=== PATIENT | female | born 2000 | race African-American/Black ===

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

== ENCOUNTER 2018-02-09 21:09 | Observation (INO) | payer MEDICAID ==
[2018-02-09] MEDS ORDERED: IV RINGERS,LACTATED 1000ML 1,000 ML IV (21:15)
[2018-02-09 21:31] LABS: BILIRUBIN,URINE NEGATIVE (NEG); CLARITY,URINE CLOUDY; COLOR,URINE AMBER; GLUCOSE,URINE NEGATIVE (NEG); NITRITE,URINE NEGATIVE (NEG); PH,URINE 6.5; PROTEIN,URINE NEGATIVE (NEG-TRACE)
[2018-02-09 21:35] LABS: BACTERIA,URINE MANY /HPF (0-FEW); RBC,URINE 0 /HPF (0-2)
[2018-02-09 21:36] LABS: SQUAMOUS EPITHELIAL CELL,UR MOD /LPF
[2018-02-09 21:45] LABS: BARBITURATES NEG (NEG); BENZODIAZEPINES NEG (NEG); CANNABINOIDS POS (NEG); COCAINE NEG (NEG); METHADONE NEG (NEG); OPIATES NEG (NEG); PHENCYCLIDINE NEG (NEG)
[2018-02-09 21:53] LABS: AMPHETAMINE/METHAMPHETAMINE NEG (NEG); ETHANOL, URINE NEG (NEG)
== END 2018-02-09 22:26 | disposition home or self-care (01) ==
LOC: 3 SO LND 21:09
DX: O26.892 Other specified pregnancy related conditions, second trimester (principal); R10.2 Pelvic and perineal pain; Z3A.25 25 weeks gestation of pregnancy
CPT/HCPCS: 80307; 81001; 87086; G0378; G0379

== ENCOUNTER 2018-09-21 00:50 | Emergency (ER) | payer SELFPAY ==
[~2018-09-21] VITALS: Ht 154.9 cm; Wt 57.6 kg
[~2018-09-21 00:50] MED LIST changes: +ONDA4TAB10 SL; +PNV1TABL25 PO
[2018-09-21 00:58] VITALS: BP 133/92
[2018-09-21 01:58] LABS: BILIRUBIN,URINE NEGATIVE (NEG); CLARITY,URINE CLEAR; COLOR,URINE YELLOW; NITRITE,URINE NEGATIVE (NEG); PH,URINE 7.5; PROTEIN,URINE NEGATIVE (NEG-TRACE)
[2018-09-21 02:02] LABS: BACTERIA,URINE MOD /HPF (0-FEW); RBC,URINE 0 /HPF (0-2); SQUAMOUS EPITHELIAL CELL,UR MANY /LPF; WBC,URINE OCC /HPF (0-4)
[2018-09-21] MEDS ORDERED: IBUP-1007 PO (02:43)
--- NOTE | 2018-09-21 02:47 | PHYS DOC ---
Past Medical History Past Medical History: No Pertinent History Past Surgical History: No Surgical History Alcohol Use: None Drug Use: None Adult General Chief Complaint Chief Complaint: ABDOMINAL PAIN IN HPI HPI Patient is a 18 year old female who presents with abdominal pain. Patient states she began having mid abdominal pain around 10 hours prior to presentation. The pain was persistent. The pain has resolved since she checked into the emergency department. She does not desire any additional workup for evaluation. The pain was sharp in nature. She had no fever. She had no urinary symptoms, vaginal symptoms, irregular bleeding or discharge. Her last menstrual cycle was on September 06. Patient has otherwise been well. No diarrhea. She is tolerating by mouth without difficulty. Review of Systems Review of Systems Constitutional: Denies fever or chills Eyes: Denies change in visual acuity HENT: Denies nasal congestion or sore throat Respiratory: Denies cough or shortness of breath Cardiovascular: No additional information not addressed in HPI GI: as documented above : Denies dysuria Musculoskeletal: Denies back pain Integument: Denies rash or skin lesions All other systems were reviewed and found to be within normal limits, except as documented in this note. Current Medications Current Medications Current Medications Medications (Trade) Dose Ordered Sig/Usama Start Time Stop Time Status Last Admin Dose Admin Ibuprofen (Motrin) 800 mg 1X ONCE 09/21/18 03:00 09/21/18 03:00 DC 09/21/18 02:59 800 MG Allergies Allergies Allergies Coded Allergies Type Severity Reaction Last Updated Verified No Known Drug Allergies 02/09/14 No Physical Exam Physical Exam Constitutional: Well developed, well nourished, no acute distress, non-toxic appearance HENT: Normocephalic, atraumatic, bilateral external ears normal, oropharynx moist Eyes: PERRLA, EOMI, conjunctiva normal Neck: Normal range of motion Cardiovascular:Heart rate regular rhythm, no murmur Lungs & Thorax: Bilateral breath sounds clear to auscultation Abdomen: Bowel sounds normal, soft, no tenderness Skin: Warm, dry, no erythema, no rash Back: No tenderness, no CVA tenderness Neurologic: Alert and oriented X 3 Psychologic: Affect normal Current Patient Data Vital Signs Vital Signs Date Time Temp Pulse Resp B/P (MAP) Pulse Ox O2 Delivery O2 Flow Rate FiO2 09/21/18 00:58 98.1 75 16 133/92 (106) 98 Room Air 98.1 Lab Values Laboratory Tests Test 09/21/18 00:55 09/21/18 01:52 Urine Collection Type Unknown Urine Color Yellow Urine Clarity Clear Urine pH 7.5 Urine Specific [place] 1.025 Urine Protein Negative mg/dL (NEG-TRACE) Urine Glucose (UA) Negative mg/dL (NEG) Urine Ketones (Stick) Negative mg/dL (NEG) Urine Blood Negative (NEG) Urine Nitrite Negative (NEG) Urine Bilirubin Negative (NEG) Urine Urobilinogen Dipstick 1.0 mg/dL (0.2 mg/dL) Urine Leukocyte Esterase Negative (NEG) Urine RBC 0 /HPF (0-2) Urine WBC Occ /HPF (0-4) Urine Squamous Epithelial Cells Many /LPF Urine Bacteria Mod /HPF (0-FEW) Urine Mucus Marked /LPF POC Urine HCG, Qualitative Hcg negative (Negative) EKG EKG [] Radiology/Procedures Radiology/Procedures [] Course & Med Decision Making Course & Med Decision Making Pertinent Labs and Imaging studies reviewed. (See chart for details) Patient is evaluated in the emergency department. Upon entering the room to see the patient, she told me that she did not desire to be treated or further evaluated. I did complete a physical exam is documented above. Her abdominal exam was completely benign. She states that her symptoms had resolved prior to evaluation. She did have a urinalysis and a test. Neither of which were positive for any acute findings. Patient was discharged home with ibuprofen as needed for any ongoing pain. Dragon Disclaimer Dragon Disclaimer This electronic medical record was generated, in whole or in part, using a voice recognition dictation system. Departure Departure Impression: Primary Impression: Abdominal pain Disposition: HOME, SELF-CARE Condition: GOOD Patient Instructions: Abdominal Pain (Nonspecific) Scripts Ibuprofen (IBUPROFEN) 600 Mg Tablet 600 MG PO PRN Q6HRS PRN for PAIN, #20 TAB take with food or milk Prov: JONATAN FOSTER DO 09/21/18 JONATAN FOSTER DO Sep 21, 2018 02:47
[2018-09-21] MEDS ORDERED: IBUPROFEN 400 MG TABLET. PO ONE (03:00)
== END 2018-09-21 02:58 | disposition home or self-care (01) ==
LOC: ER 00:50
DX: R10.9 Unspecified abdominal pain (principal)
CPT/HCPCS: 81001; 81025; 99283

== ENCOUNTER 2019-05-15 14:52 | Emergency (ER) | payer SELFPAY ==
[~2019-05-15] VITALS: Ht 154.9 cm; Wt 49.4 kg
[~2019-05-15 14:52] MED LIST changes: +ALBU2.5V8 INH; +HYDR-3164 PO; -HYDR-971 PO; +IBUP-1007 PO; -PROAIR HFA8.5 GM INH
--- NOTE | 2019-05-15 15:26 | PHYS DOC ---
Past Medical History Past Medical History: No Pertinent History Past Surgical History: No Surgical History Alcohol Use: None Drug Use: None Adult General Chief Complaint Chief Complaint: ABDOMINAL PAIN HPI HPI Patient is a 19 year old AA female who presents to the ER with complaints of lower abdominal pain and nausea for the last 3 days. She denies any vomiting, diarrhea, or constipation. She states that her LMP was on 05/08/19, and reports having 3 cycles in the last month. She denies any fever, cough, sore throat, body aches, dysuria, or irregular vaginal discharge. She denies concerns of an STI. Pt complains of left low back pain with L CVA tenderness. Currently her pain is a 8/10, there are no alleviating factors. Review of Systems Review of Systems Constitutional: Denies fever or chills [] Eyes: Denies change in visual acuity, redness, or eye pain [] HENT: Denies nasal congestion or sore throat [] Respiratory: Denies cough or shortness of breath [] Cardiovascular: No additional information not addressed in HPI [] GI:see hPI : See HPI Musculoskeletal: SeeHPI Integument: Denies rash or skin lesions [] Neurologic: Denies headache, focal weakness or sensory changes [] Complete systems were reviewed and found to be within normal limits, except as documented in this note. Current Medications Current Medications Current Medications Medications (Trade) Dose Ordered Sig/Usama Start Time Stop Time Status Last Admin Dose Admin Morphine Sulfate (Morphine Sulfate) 4 mg 1X ONCE 05/15/19 15:30 05/15/19 15:31 DC 05/15/19 15:21 4 MG Ondansetron HCl (Zofran) 4 mg 1X ONCE 05/15/19 15:30 05/15/19 15:31 DC 05/15/19 15:21 4 MG Sodium Chloride 1,000 ml @ 1,000 mls/hr 1X ONCE 05/15/19 15:30 05/15/19 16:29 DC 05/15/19 15:20 1,000 MLS/HR Allergies Allergies Allergies Coded Allergies Type Severity Reaction Last Updated Verified No Known Drug Allergies 02/09/14 No Physical Exam Physical Exam Constitutional: Well developed, well nourished, no acute distress, non-toxic appearance. [] HENT: Normocephalic, atraumatic, bilateral external ears normal, oropharynx moist, no oral exudates, nose normal. [] Eyes: conjunctiva normal, no discharge. [] Neck: Normal range of motion, no stridor. [] Cardiovascular:Heart rate regular rhythm, no murmur [] Lungs & Thorax: Bilateral breath sounds clear to auscultation [] Abdomen: Bowel sounds normal, soft, no tenderness, no rebound, no guarding, no masses, no pulsatile masses. [] Skin: Warm, dry, no erythema, no rash. [] Back: L CVA tenderness. [] Extremities: No cyanosis, ROM intact, no edema. [] Neurologic: Alert and oriented X 3, no focal deficits noted. [] Psychologic: Affect normal, judgement normal, mood normal. [] Current Patient Data Vital Signs Vital Signs Date Time Temp Pulse Resp B/P (MAP) Pulse Ox O2 Delivery O2 Flow Rate FiO2 05/15/19 15:40 66 18 110/56 (74) 98 Room Air 05/15/19 14:55 98.8 98.8 Lab Values Laboratory Tests Test 05/15/19 14:55 05/15/19 15:06 White Blood Count 14.1 x10^3/uL (4.0-11.0) H Red Blood Count 5.06 x10^6/uL (3.50-5.40) Hemoglobin 12.7 g/dL (12.0-15.5) Hematocrit 37.1 % (36.0-47.0) Mean Corpuscular Volume 73 fL (79-100) L Mean Corpuscular Hemoglobin 25 pg (25-35) Mean Corpuscular Hemoglobin Concent 34 g/dL (31-37) Red Cell Distribution Width 14.5 % (11.5-14.5) Platelet Count 277 x10^3/uL (140-400) Neutrophils (%) (Auto) 83 % (31-73) H Lymphocytes (%) (Auto) 10 % (24-48) L Monocytes (%) (Auto) 6 % (0-9) Eosinophils (%) (Auto) 0 % (0-3) Basophils (%) (Auto) 0 % (0-3) Neutrophils # (Auto) 11.7 x10^3uL (1.8-7.7) H Lymphocytes # (Auto) 1.4 x10^3/uL (1.0-4.8) Monocytes # (Auto) 0.9 x10^3/uL (0.0-1.1) Eosinophils # (Auto) 0.0 x10^3/uL (0.0-0.7) Basophils # (Auto) 0.1 x10^3/uL (0.0-0.2) Segmented Neutrophils % 79 % (35-66) H Band Neutrophils % 5 % (0-9) Lymphocytes % 11 % (24-48) L Monocytes % 4 % (0-10) Basophils % 1 % (0-3) Platelet Estimate Adequate (ADEQUATE) Microcytosis Mod Urine Collection Type Unknown Urine Color Dk yellow Urine Clarity Cloudy Urine pH 6.0 Urine Specific [place] >=1.030 Urine Protein 30 mg/dL (NEG-TRACE) Urine Glucose (UA) Negative mg/dL (NEG) Urine Ketones (Stick) 15 mg/dL (NEG) Urine Blood Large (NEG) Urine Nitrite Negative (NEG) Urine Bilirubin Small (NEG) Urine Urobilinogen Dipstick 1.0 mg/dL (0.2 mg/dL) Urine Leukocyte Esterase Trace (NEG) Urine RBC Occ /HPF (0-2) Urine WBC Occ /HPF (0-4) Urine Squamous Epithelial Cells Many /LPF Urine Bacteria Many /HPF (0-FEW) Urine Mucus Marked /LPF Sodium Level 136 mmol/L (136-145) Potassium Level 3.5 mmol/L (3.5-5.1) Chloride Level 100 mmol/L (98-107) Carbon Dioxide Level 26 mmol/L (21-32) Anion Gap 10 (6-14) Blood Urea Nitrogen 9 mg/dL (7-20) Creatinine 0.8 mg/dL (0.6-1.0) Estimated GFR (Cockcroft-Gault) 109.6 BUN/Creatinine Ratio 11 (6-20) Glucose Level 102 mg/dL (70-99) H Calcium Level 9.5 mg/dL (8.5-10.1) Total Bilirubin 0.7 mg/dL (0.2-1.0) Aspartate Amino Transferase (AST) 12 U/L (15-37) L Alanine Aminotransferase (ALT) 17 U/L (14-59) Alkaline Phosphatase 44 U/L (46-116) L Total Protein 8.1 g/dL (6.4-8.2) Albumin 3.8 g/dL (3.4-5.0) Albumin/Globulin Ratio 0.9 (1.0-1.7) L POC Urine HCG, Qualitative Hcg negative (Negative) Laboratory Tests 05/15/19 14:55 Laboratory Tests 05/15/19 14:55 EKG EKG [] Radiology/Procedures Radiology/Procedures PROCEDURE: CT ABDOMEN PELVIS WO CONTRAST CT abdomen and pelvis without contrast. HISTORY: Left flank pain, blood in urine, lower abdominal pain. CT scan the abdomen and pelvis was done without contrast. Lung bases are clear. There is no effusion. A liver lesion is not identified. Spleen and adrenal glands are normal. Pancreas is not optimally visualized but grossly normal. There is no mass or hydronephrosis in the kidneys. There is no intrarenal calculus. The ureters are poorly visualized. There is a probable phleboliths in the pelvis on the left. A definite ureteral calculus is not identified. There is no bowel obstruction or ascites or free air. The appendix is normal. Uterus is normal. Ovaries are not well seen but no definite pelvic mass is noted. Lack of oral and intravenous contrast makes evaluation more difficult. IMPRESSION: 1. No renal calculus or hydronephrosis noted. 2. probable phlebolith on the left side of the pelvis. 3. No definite ureteral calculus. 4. Normal appendix. 5. No bowel obstruction or other acute finding. [] Course & Med Decision Making Course & Med Decision Making Pertinent Labs and Imaging studies reviewed. (See chart for details) Dx: abdominal pain, nausea Ddx: PID. UTI, pyelonephritis, kidney stone, TOA CT abd/pel was negative for acute findings UA negative for infection positive for blood CBC 14.1, CMP unremarkable, HCG negative Prescription written for zofran and ibuprofen. Follow up with PCP if sx persist, return to the ER if sx worsen Patient verbalized an understanding of home care, medications, follow-up, and return to ED instructions and was in agreement with the plan of care. [] Dragon Disclaimer Dragon Disclaimer This electronic medical record was generated, in whole or in part, using a voice recognition dictation system. Departure Departure Impression: Primary Impression: Abdominal pain Additional Impression: Nausea Disposition: 01 HOME, SELF-CARE Condition: STABLE Referrals: NO PCP (PCP) Patient Instructions: Abdominal Pain (Nonspecific), Nausea, Adult, [id number] Additional Instructions: Fill prescriptions and use them as directed. Recommend clear fluids for the next 24 hours. Then you may advance to bland foods such as bananas, rice, applesauce, and dry toast. Follow-up with your primary care doctor in the next 1-2 days. Return to the emergency room if your symptoms worsen. Scripts Ibuprofen (IBUPROFEN) 400 Mg Tablet 400 MG PO PRN Q6HRS PRN for INFLAMMATION for 2 Days, #8 TAB 0 Refills Prov: STEPHANIE WHITE APRN 05/15/19 Ondansetron (ONDANSETRON ODT) 4 Mg Tab.rapdis 1 TAB PO PRN Q6-8HRS for 2 Days, #8 TAB 0 Refills Prov: STEPHANIE WHITE APRN 05/15/19 Problem Qualifiers Primary Impression: Abdominal pain Abdominal location: lower abdomen, unspecified Qualified Codes: R10.30 - Lower abdominal pain, unspecified STEPHANIE WHITE APRN May 15, 2019 15:26
[2019-05-15 15:27] LABS: BASO # 0.1 x10^3/uL (0.0-0.2); BASO % 0 % (0-3); BILIRUBIN,URINE SMALL (NEG); CLARITY,URINE CLOUDY; EOS % 0 % (0-3); HEMATOCRIT 37.1 % (36.0-47.0); HEMOGLOBIN 12.7 g/dL (12.0-15.5); LYMPH # 1.4 x10^3/uL (1.0-4.8); LYMPH % 10 % (24-48); MEAN CORPUSCULAR HEMOGLOBIN 25 pg (25-35); MEAN CORPUSCULAR HGB CONC 34 g/dL (31-37); MEAN CORPUSCULAR VOLUME 73 fL (79-100); MONO # 0.9 x10^3/uL (0.0-1.1); MONO % 6 % (0-9); NEUT # 11.7 x10^3uL (1.8-7.7); NEUT % 83 % (31-73); NITRITE,URINE NEGATIVE (NEG); PLATELET COUNT 277 x10^3/uL (140-400); PROTEIN,URINE 30 mg/dL (NEG-TRACE); RED BLOOD COUNT 5.06 x10^6/uL (3.50-5.40); RED CELL DISTRIBUTION WIDTH 14.5 % (11.5-14.5); WHITE BLOOD COUNT 14.1 x10^3/uL (4.0-11.0)
[2019-05-15] MEDS ORDERED: ONDANSETRON PF 4 MG/2 ML VIAL. IV ONE (15:30)
[2019-05-15] MEDS ORDERED: MORPHINE SULFATE 4 MG/ML VIAL. IV ONE (15:30)
[2019-05-15] MEDS ORDERED: IV NORMAL SALINE 1000ML BAG 1,000 ML IV ONE (15:30)
[2019-05-15 15:32] LABS: CALCIUM 9.5 mg/dL (8.5-10.1); CREATININE 0.8 mg/dL (0.6-1.0); GFR 109.6; POTASSIUM 3.5 mmol/L (3.5-5.1)
[2019-05-15 15:35] LABS: COLOR,URINE DK YELLOW
[2019-05-15 15:38] LABS: BACTERIA,URINE MANY /HPF (0-FEW); RBC,URINE OCC /HPF (0-2); SQUAMOUS EPITHELIAL CELL,UR MANY /LPF; WBC,URINE OCC /HPF (0-4)
[2019-05-15 15:39] LABS: ALBUMIN 3.8 g/dL (3.4-5.0); ALBUMIN/GLOBULIN RATIO 0.9 (1.0-1.7); TOTAL BILIRUBIN 0.7 mg/dL (0.2-1.0); TOTAL PROTEIN 8.1 g/dL (6.4-8.2)
[2019-05-15 15:40] VITALS: BP 110/56
[2019-05-15 16:18] LABS: % BANDS 5 % (0-9); % BASOS 1 % (0-3); % LYMPHS 11 % (24-48); % MONOS 4 % (0-10); % SEGS 79 % (35-66); MICROCYTOSIS MOD; PLT ESTIMATE ADEQUATE (ADEQUATE)
--- NOTE | 2019-05-15 16:54 | RAD ---
CT abdomen and pelvis without contrast. HISTORY: Left flank pain, blood in urine, lower abdominal pain. CT scan the abdomen and pelvis was done without contrast. Lung bases are clear. There is no effusion. A liver lesion is not identified. Spleen and adrenal glands are normal. Pancreas is not optimally visualized but grossly normal. There is no mass or hydronephrosis in the kidneys. There is no intrarenal calculus. The ureters are poorly visualized. There is a probable phleboliths in the pelvis on the left. A definite ureteral calculus is not identified. There is no bowel obstruction or ascites or free air. The appendix is normal. Uterus is normal. Ovaries are not well seen but no definite pelvic mass is noted. Lack of oral and intravenous contrast makes evaluation more difficult. IMPRESSION: 1. No renal calculus or hydronephrosis noted. 2. probable phlebolith on the left side of the pelvis. 3. No definite ureteral calculus. 4. Normal appendix. 5. No bowel obstruction or other acute finding. PQRS Compliance Statement: One or more of the following individualized dose reduction techniques were utilized for this examination: 1. Automated exposure control 2. Adjustment of the mA and/or kV according to patient size 3. Use of iterative reconstruction technique Electronically signed by: Leandro Mix MD (05/15/2019 4:51 PM) [facility]
[2019-05-15] MEDS ORDERED: ONDA4TAB12 PO (17:13)
[2019-05-15] MEDS ORDERED: IBUP-1027 PO (17:18)
== END 2019-05-15 17:23 | disposition home or self-care (01) ==
LOC: ER 14:52
DX: R10.30 Lower abdominal pain, unspecified (principal); R11.0 Nausea; M54.5 Low back pain
CPT/HCPCS: 36415; 74176; 80053; 81001; 81025; 85007; 85025; 87086; 96374; 96375; 99285; J2270; J2405; J7030

== ENCOUNTER 2019-11-22 23:10 | Emergency (ER) | payer MEDICAID ==
[~2019-11-22] VITALS: Ht 157.5 cm; Wt 54.4 kg
[~2019-11-22 23:10] MED LIST changes: +IBUP-1027 PO; +ONDA4TAB12 PO
[2019-11-22 23:20] VITALS: BP 116/52
[2019-11-22 23:34] LABS: BILIRUBIN,URINE NEGATIVE (NEG); CLARITY,URINE CLEAR; COLOR,URINE YELLOW; NITRITE,URINE NEGATIVE (NEG); PH,URINE 6.5; PROTEIN,URINE NEGATIVE (NEG-TRACE); UROBILINOGEN,URINE 0.2 mg/dL (0.2 mg/dL)
[2019-11-22 23:43] LABS: BASO % 1 % (0-3); EOS % 1 % (0-3); HEMATOCRIT 33.7 % (36.0-47.0); HEMOGLOBIN 11.3 g/dL (12.0-15.5); LYMPH # 3.3 x10^3/uL (1.0-4.8); LYMPH % 52 % (24-48); MEAN CORPUSCULAR HEMOGLOBIN 25 pg (25-35); MEAN CORPUSCULAR HGB CONC 34 g/dL (31-37); MEAN CORPUSCULAR VOLUME 75 fL (79-100); MONO # 0.4 x10^3/uL (0.0-1.1); MONO % 7 % (0-9); NEUT # 2.5 x10^3/uL (1.8-7.7); NEUT % 40 % (31-73); PLATELET COUNT 286 x10^3/uL (140-400); RED BLOOD COUNT 4.48 x10^6/uL (3.50-5.40); RED CELL DISTRIBUTION WIDTH 15.9 % (11.5-14.5); WHITE BLOOD COUNT 6.2 x10^3/uL (4.0-11.0)
[2019-11-22 23:46] LABS: SQUAMOUS EPITHELIAL CELL,UR MOD /LPF
[2019-11-22 23:47] LABS: BACTERIA,URINE FEW /HPF (0-FEW); RBC,URINE 0 /HPF (0-2)
--- NOTE | 2019-11-22 23:55 | PHYS DOC ---
Past Medical History Past Medical History: No Pertinent History Past Surgical History: No Surgical History Alcohol Use: None Drug Use: None Adult General Chief Complaint Chief Complaint: ABDOMINAL PAIN [facility] HPI 19-year-old male presents to the emergency department with complaints of lower abdominal pain. Patient states pain started a couple days ago, she describes as bilateral lower abdominal pain sharp in nature. She denies any bleeding or discharge. LMP was October 07, expected date of delivery July 08. Patient is approximately 7 weeks and 1 day. Nothing makes pain worse, nothing makes pain better on exam. She is currently afebrile. Patient states she missed her appointment today at Dr. Peraza office Review of Systems Review of Systems Constitutional: Denies fever or chills [] Respiratory: Denies cough or shortness of breath [] Cardiovascular: No additional information not addressed in HPI [] GI: + abdominal pain, no nausea, vomiting, bloody stools or diarrhea [] : Denies dysuria or hematuria [] Musculoskeletal: Denies back pain or joint pain [] Integument: Denies rash or skin lesions [] Neurologic: Denies headache, focal weakness or sensory changes [] All other systems were reviewed and found to be within normal limits, except as documented in this note. Allergies Allergies Allergies Coded Allergies Type Severity Reaction Last Updated Verified No Known Drug Allergies 02/09/14 No Physical Exam Physical Exam Constitutional: Well developed, well nourished, no acute distress, non-toxic appearance. [] HENT: Normocephalic, atraumatic, bilateral external ears normal, oropharynx moist, no oral exudates, nose normal. [] Eyes: PERRLA, EOMI, conjunctiva normal, no discharge. [] Cardiovascular:Heart rate regular rhythm, no murmur [] Lungs & Thorax: Bilateral breath sounds clear to auscultation [] Abdomen: Bowel sounds normal, soft, no tenderness, no masses, no pulsatile masses. No tenderness on exam[] Skin: Warm, dry, no erythema, no rash. [] Back: No tenderness, no CVA tenderness. [] Extremities: No tenderness, no edema. [] Neurologic: Alert and oriented X 3, no focal deficits noted. [] Psychologic: Affect normal, judgement normal, mood normal. [] : No evidence of bleeding, + yeast, mucous present Current Patient Data Vital Signs Vital Signs Date Time Temp Pulse Resp B/P (MAP) Pulse Ox O2 Delivery O2 Flow Rate FiO2 11/22/19 23:20 98.3 78 20 116/52 (73) 100 Room Air 98.3 Lab Values Laboratory Tests Test 11/22/19 23:20 11/22/19 23:23 11/22/19 23:35 Urine Collection Type Unknown Urine Color Yellow Urine Clarity Clear Urine pH 6.5 Urine Specific [place] 1.020 Urine Protein Negative mg/dL (NEG-TRACE) Urine Glucose (UA) Negative mg/dL (NEG) Urine Ketones (Stick) Negative mg/dL (NEG) Urine Blood Negative (NEG) Urine Nitrite Negative (NEG) Urine Bilirubin Negative (NEG) Urine Urobilinogen Dipstick 0.2 mg/dL (0.2 mg/dL) Urine Leukocyte Esterase Negative (NEG) Urine RBC 0 /HPF (0-2) Urine WBC 1-4 /HPF (0-4) Urine Squamous Epithelial Cells Mod /LPF Urine Bacteria Few /HPF (0-FEW) Urine Mucus Mod /LPF POC Urine HCG, Qualitative Hcg positive (Negative) White Blood Count 6.2 x10^3/uL (4.0-11.0) Red Blood Count 4.48 x10^6/uL (3.50-5.40) Hemoglobin 11.3 g/dL (12.0-15.5) L Hematocrit 33.7 % (36.0-47.0) L Mean Corpuscular Volume 75 fL (79-100) L Mean Corpuscular Hemoglobin 25 pg (25-35) Mean Corpuscular Hemoglobin Concent 34 g/dL (31-37) Red Cell Distribution Width 15.9 % (11.5-14.5) H Platelet Count 286 x10^3/uL (140-400) Neutrophils (%) (Auto) 40 % (31-73) Lymphocytes (%) (Auto) 52 % (24-48) H Monocytes (%) (Auto) 7 % (0-9) Eosinophils (%) (Auto) 1 % (0-3) Basophils (%) (Auto) 1 % (0-3) Neutrophils # (Auto) 2.5 x10^3/uL (1.8-7.7) Lymphocytes # (Auto) 3.3 x10^3/uL (1.0-4.8) Monocytes # (Auto) 0.4 x10^3/uL (0.0-1.1) Eosinophils # (Auto) 0.0 x10^3/uL (0.0-0.7) Basophils # (Auto) 0.0 x10^3/uL (0.0-0.2) Sodium Level 138 mmol/L (136-145) Potassium Level 3.3 mmol/L (3.5-5.1) L Chloride Level 102 mmol/L (98-107) Carbon Dioxide Level 25 mmol/L (21-32) Anion Gap 11 (6-14) Blood Urea Nitrogen 8 mg/dL (7-20) Creatinine 0.6 mg/dL (0.6-1.0) Estimated GFR (Cockcroft-Gault) 152.7 BUN/Creatinine Ratio 13 (6-20) Glucose Level 90 mg/dL (70-99) Calcium Level 8.9 mg/dL (8.5-10.1) Total Bilirubin 0.4 mg/dL (0.2-1.0) Aspartate Amino Transferase (AST) 11 U/L (15-37) L Alanine Aminotransferase (ALT) 13 U/L (14-59) L Alkaline Phosphatase 30 U/L (46-116) L Total Protein 7.6 g/dL (6.4-8.2) Albumin 3.7 g/dL (3.4-5.0) Albumin/Globulin Ratio 0.9 (1.0-1.7) L Laboratory Tests 11/22/19 23:35 Laboratory Tests 11/22/19 23:35 EKG EKG [] Radiology/Procedures Radiology/Procedures [facility] [address] [place] [address] IMAGING REPORT Signed PATIENT: MILVIA HERNÁNDEZ ACCOUNT: [id number] : 2000 LOCATION: ER AGE: 19 SEX: F EXAM STATUS: REG ER ORD. PHYSICIAN: KIERA HUFFMAN MD REASON: abdominal pain in PROCEDURE: OB TRANSVAG Exam: Ultrasound OB less than 14 weeks Indication: Abdominal pain and Technique: Real-time grayscale and color Doppler images of the pelvis were obtained by the department lactation specialist. Comparisons: None FINDINGS: Uterus measures 9.3 x 6.0 x 4.9 cm. Within the endometrium there is a gestational sac with yolk sac and pole which measures 1.0 cm corresponding to 7 weeks 1 day. heart rate is measured at 137 bpm. Right ovary measures 3.7 x 1.7 x 1.3 cm. Left ovary measures 3.3 x 2.5 x 2.5 cm. Vascular flow identified within the ovaries bilaterally. No free fluid. IMPRESSION: 1. Single live intrauterine gestation with estimated due date 07/08/2020 by LMP, concordant with today's ultrasound. 2. Dedicated survey is recommended at 18-20 weeks gestation. Electronically signed by: Stephanie Marks MD (11/23/2019 12:03 AM) [facility] DICTATED and SIGNED BY: STEPHANIE MARKS MD DATE: 11/23/19 0003 [] Course & Med Decision Making Course & Med Decision Making Pertinent Labs and Imaging studies reviewed. (See chart for details) []19-year-old male presents to the emergency department with complaints of lower abdominal pain. Patient states pain started a couple days ago, she describes as bilateral lower abdominal pain sharp in nature. She denies any bleeding or discharge. LMP was October 07, expected date of delivery July 08. Patient is approximately 7 weeks and 1 day. Nothing makes pain worse, nothing makes pain better on exam. She is currently afebrile. Patient states she missed her appointment today at Dr. Peraza office US and pelvic exam completed patient states she wants to leave. She states she cannot wait any longer, mind you she has been in the department for 1 hour and 5 minutes at this time US is reviewed and essentially normal at this time Wet prep pending UAD without evidence of infection Patient left AMA - she would not wait for all of her results to come back Asaf Disclaimer Asaf Disclaimer This electronic medical record was generated, in whole or in part, using a voice recognition dictation system. Departure Departure Impression: Primary Impression: Abdominal pain in Disposition: 07 AGAINST MEDICAL ADVICE Condition: STABLE Referrals: NO PCP (PCP) Patient Instructions: Discharge Against Medical Advice Additional Instructions: Recommend follow up with PCP 3 - 5 days Return to the ER with worsening symptoms, intractable pain, fever, altered mental status US normal All of the labs not completed at this time Problem Qualifiers Primary Impression: Abdominal pain in Trimester: first trimester Qualified Codes: O26.891 - Other specified related conditions, first trimester; R10.9 - Unspecified abdominal pain KIERA HUFFMAN MD Nov 22, 2019 23:55
[2019-11-23 00:01] LABS: CALCIUM 8.9 mg/dL (8.5-10.1); CREATININE 0.6 mg/dL (0.6-1.0); GFR 152.7; POTASSIUM 3.3 mmol/L (3.5-5.1)
[2019-11-23 00:06] LABS: ALBUMIN 3.7 g/dL (3.4-5.0); ALBUMIN/GLOBULIN RATIO 0.9 (1.0-1.7); TOTAL BILIRUBIN 0.4 mg/dL (0.2-1.0); TOTAL PROTEIN 7.6 g/dL (6.4-8.2)
--- NOTE | 2019-11-23 00:06 | RAD ---
Exam: Ultrasound OB less than 14 weeks Indication: Abdominal pain and Technique: Real-time grayscale and color Doppler images of the pelvis were obtained by the department maintenance truck driver. Comparisons: None FINDINGS: Uterus measures 9.3 x 6.0 x 4.9 cm. Within the endometrium there is a gestational sac with yolk sac and pole which measures 1.0 cm corresponding to 7 weeks 1 day. heart rate is measured at 137 bpm. Right ovary measures 3.7 x 1.7 x 1.3 cm. Left ovary measures 3.3 x 2.5 x 2.5 cm. Vascular flow identified within the ovaries bilaterally. No free fluid. IMPRESSION: 1. Single live intrauterine gestation with estimated due date 07/08/2020 by LMP, concordant with today's ultrasound. 2. Dedicated survey is recommended at 18-20 weeks gestation. Electronically signed by: Stephanie Cannon MD (11/23/2019 12:03 AM) [facility]
== END 2019-11-23 00:15 | disposition left against medical advice (07) ==
LOC: ER 23:10
DX: O26.891 Other specified pregnancy related conditions, first trimester (principal); R10.31 Right lower quadrant pain; R10.32 Left lower quadrant pain; Z3A.01 Less than 8 weeks gestation of pregnancy
CPT/HCPCS: 36415; 76817; 80053; 81001; 81025; 84702; 85025; 86900; 86901; 99285; Q0111

== ENCOUNTER 2020-01-27 03:16 | Emergency (ER) | payer MEDICAID ==
[~2020-01-27] VITALS: Ht 154.9 cm; Wt 56.8 kg
[2020-01-27 03:28] VITALS: BP 123/58
--- NOTE | 2020-01-27 03:43 | PHYS DOC ---
Past Medical History Past Medical History: No Pertinent History Past Surgical History: No Surgical History Smoking Status: Never Smoker Alcohol Use: None Drug Use: None Adult General Chief Complaint Chief Complaint: Congestion HPI HPI 19-year-old female 16 weeks presents to emergency Department complaints of congestion, headache ongoing 2-3 days. She states she can't sleep, she states her nose is congested, she states her throat is dry and sore. Makes her symptoms better nothing makes her symptoms worse. She is drinking playful fluids however has had a decreased appetite. She did not bother to call her primary care physician or her SUPERVISOR C[employer] COMPLAINT SERVICE to clarify medication that she is able to take [id number] so she presents to the ER for advice. He makes her symptoms worse, nothing makes her symptoms better. She denies any fever, nausea or vomiting. All other ROS negative unless documented in HPI Review of Systems Review of Systems See Above Allergies Allergies Allergies Coded Allergies Type Severity Reaction Last Updated Verified No Known Drug Allergies 02/09/14 No Physical Exam Physical Exam See Above Constitutional: Well developed, well nourished, no acute distress, non-toxic appearance. [] HENT: Normocephalic, atraumatic, bilateral external ears normal, oropharynx moist, no oral exudates, nose normal. [] Eyes: PERRLA, EOMI, conjunctiva normal, no discharge. [] Neck: Normal range of motion, no tenderness, supple, no stridor. [] Cardiovascular:Heart rate regular rhythm, no murmur [] Lungs & Thorax: Bilateral breath sounds clear to auscultation [] Abdomen: Bowel sounds normal, soft, no tenderness, no masses, no pulsatile masses. [] Skin: Warm, dry, no erythema, no rash. [] Back: No tenderness, no CVA tenderness. [] Extremities: No tenderness, no cyanosis, no clubbing, ROM intact, no edema. [] Neurologic: Alert and oriented X 3, normal motor function, normal sensory function, no focal deficits noted. [] Psychologic: Affect normal, judgement normal, mood normal. [] EKG EKG [] Radiology/Procedures Radiology/Procedures [] Course & Med Decision Making Course & Med Decision Making Pertinent Labs and Imaging studies reviewed. (See chart for details) []19-year-old female 16 weeks presents to emergency Department complaints of congestion, headache ongoing 2-3 days. She states she can't sleep, she states her nose is congested, she states her throat is dry and sore. Makes her symptoms better nothing makes her symptoms worse. She is drinking playful fluids however has had a decreased appetite. She did not bother to call her primary care physician or her SUPER[employer]ICE to clarify medication that she is able to take [id number] so she presents to the ER for advice. He makes her symptoms worse, nothing makes her symptoms better. She denies any fever, nausea or vomiting. Discussed with patient this is likely a viral syndrome, recommended encouraging fluids evening she's not having a good appetite fluid intake is important Discussed medications that are okay for including Tylenol, Mucinex without DM, Robitussin without DM. Patient accepted okay for Benadryl during and answers yes. In informed her primary care physician or [employer] with her scheduled appointment Return precautions discussed. Dragon Disclaimer Dragon Disclaimer This electronic medical record was generated, in whole or in part, using a voice recognition dictation system. Departure Departure Impression: Primary Impression: Viral syndrome Disposition: 01 HOME, SELF-CARE Condition: STABLE Referrals: NO PCP (PCP) Patient Instructions: Viral Syndrome Additional Instructions: Tylenol, Robitussin (without DM), mucinex (without DM) ok in Encourage fluid intake, even if decreased appetite Keep scheduled appointment for SUPER[employer] This will like take 4-6 days to improve Return to the ER with vaginal bleeding, fever that does not resolve with tylenol, persistent diarrhea, persistent vomiting KIERA HUFFMAN MD Jan 27, 2020 03:43
== END 2020-01-27 03:53 | disposition home or self-care (01) ==
LOC: ER 03:16
DX: O98.512 Other viral diseases complicating pregnancy, second trimester (principal); B34.9 Viral infection, unspecified; Z3A.16 16 weeks gestation of pregnancy
CPT/HCPCS: 99281

== ENCOUNTER 2020-02-07 22:40 | Emergency (ER) | payer MEDICAID ==
--- NOTE | 2020-02-07 23:03 | PHYS DOC ---
Past Medical History Past Medical History: No Pertinent History Past Surgical History: No Surgical History Smoking Status: Never Smoker Alcohol Use: None Drug Use: None Adult General Chief Complaint Chief Complaint: ABDOMINAL PAIN HPI HPI Patient is a 19 year old [f__sex] who presents with [] Review of Systems Review of Systems Constitutional: Denies fever or chills [] Eyes: Denies change in visual acuity, redness, or eye pain [] HENT: Denies nasal congestion or sore throat [] Respiratory: Denies cough or shortness of breath [] Cardiovascular: No additional information not addressed in HPI [] GI: Denies abdominal pain, nausea, vomiting, bloody stools or diarrhea [] : Denies dysuria or hematuria [] Musculoskeletal: Denies back pain or joint pain [] Integument: Denies rash or skin lesions [] Neurologic: Denies headache, focal weakness or sensory changes [] Endocrine: Denies polyuria or polydipsia [] All other systems were reviewed and found to be within normal limits, except as documented in this note. Allergies Allergies Allergies Coded Allergies Type Severity Reaction Last Updated Verified No Known Drug Allergies 02/09/14 No Physical Exam Physical Exam Constitutional: Well developed, well nourished, no acute distress, non-toxic appearance. [] HENT: Normocephalic, atraumatic, bilateral external ears normal, oropharynx moist, no oral exudates, nose normal. [] Eyes: PERRLA, EOMI, conjunctiva normal, no discharge. [] Neck: Normal range of motion, no tenderness, supple, no stridor. [] Cardiovascular:Heart rate regular rhythm, no murmur [] Lungs & Thorax: Bilateral breath sounds clear to auscultation [] Abdomen: Bowel sounds normal, soft, no tenderness, no masses, no pulsatile masses. [] Skin: Warm, dry, no erythema, no rash. [] Back: No tenderness, no CVA tenderness. [] Extremities: No tenderness, no cyanosis, no clubbing, ROM intact, no edema. [] Neurologic: Alert and oriented X 3, normal motor function, normal sensory function, no focal deficits noted. [] Psychologic: Affect normal, judgement normal, mood normal. [] EKG EKG [] Radiology/Procedures Radiology/Procedures [] Course & Med Decision Making Course & Med Decision Making Pertinent Labs and Imaging studies reviewed. (See chart for details) []I DID NOT EXAMINE THE PATIENT. PATIENT SIGNED OUT OF ER SHORTLY AFTER BEING PLACED IN ROOM. Dragon Disclaimer Dragon Disclaimer This electronic medical record was generated, in whole or in part, using a voice recognition dictation system. Departure Departure Impression: Primary Impression: Did not wait for treatment Referrals: NO PCP (PCP) DUSTIN WATT I DO Feb 07, 2020 23:03
[2020-02-07 23:04] LABS: BILIRUBIN,URINE NEGATIVE (NEG); CLARITY,URINE TURBID; COLOR,URINE YELLOW; NITRITE,URINE NEGATIVE (NEG); PROTEIN,URINE NEGATIVE (NEG-TRACE)
[2020-02-07 23:15] LABS: AMORPHOUS SEDIMENT,UR PRESENT /HPF; BACTERIA,URINE MANY /HPF (0-FEW); RBC,URINE 0 /HPF (0-2); SQUAMOUS EPITHELIAL CELL,UR MANY /LPF
== END 2020-02-07 23:02 | disposition left against medical advice (07) ==
LOC: ER 22:40
DX: O26.892 Other specified pregnancy related conditions, second trimester (principal); R10.30 Lower abdominal pain, unspecified; Z3A.17 17 weeks gestation of pregnancy
CPT/HCPCS: 81001; 81025; 87086; 99283

== ENCOUNTER 2020-04-22 22:35 | Observation (INO) | payer MEDICAID ==
[2020-04-22] MEDS ORDERED: IV RINGERS,LACTATED 1000ML 1,000 ML IV SCH (22:37)
[2020-04-22] MEDS ORDERED: ACETAMINOPHEN 500 MG TABLET PO PRN (22:45)
[2020-04-23 00:03] LABS: BILIRUBIN,URINE NEGATIVE (NEG); CLARITY,URINE CLEAR; COLOR,URINE YELLOW; NITRITE,URINE NEGATIVE (NEG); PH,URINE 7.5 (<5.0-8.0); PROTEIN,URINE NEGATIVE (NEG-TRACE)
[2020-04-23 00:09] LABS: BACTERIA,URINE MANY /HPF (0-FEW); RBC,URINE 0 /HPF (0-2); SQUAMOUS EPITHELIAL CELL,UR MOD /LPF; WBC,URINE 20-40 /HPF (0-4)
== END 2020-04-23 00:40 | disposition home or self-care (01) ==
LOC: 3 SO LND 22:35
PROVIDERS: ADMIT Obstetrics & Gynecology; ATTEND Obstetrics & Gynecology
DX: O26.892 Other specified pregnancy related conditions, second trimester (principal); R10.2 Pelvic and perineal pain; Z3A.27 27 weeks gestation of pregnancy
CPT/HCPCS: 81001; 87086; G0378; G0379

== ENCOUNTER → 2020-05-15 | Outpatient (CLI) | payer MEDICAID ==
--- NOTE | 2020-05-15 13:42 | RAD ---
EXAM: Obstetrics sonogram. HISTORY: Uterine size and dates discrepancy. TECHNIQUE: Sonographic imaging of a gravid uterus was performed. COMPARISON: None. FINDINGS: There is a single intrauterine fetus in cephalic presentation with a normal heart rate of 135 bpm. The amniotic fluid index is normal at 10.2 cm. There is a grade one antral placenta without evidence of placenta previa. The anatomy is not formally assessed. The biparietal diameter is 8.03 cm, corresponding with 32 weeks and 2 days. The head circumference is 29.27 cm, corresponding with 30 weeks and 2 days. The abdominal circumference is 28.44 cm, corresponding with 30 weeks and 3 days. The femoral length is 6.09 cm, corresponding with 31 weeks and 4 days. The estimated gestational age patient combined ultrasound measurements is 32 weeks and 1 day and the estimated weight is 1920 g. This corresponds with the 51st percentile for a gestational age of 31 weeks and 5 days based on LMP. The estimated due date is 07/09/2020. IMPRESSION: Single intrauterine fetus in cephalic presentation with a normal heart rate and gestational age patient ultrasound measurements of 32 weeks and 1 day. The anatomy is not formally assessed. Electronically signed by: Yadira Hill MD (05/15/2020 1:39 PM) [facility]
== END | disposition home or self-care (01) ==
LOC: US 12:52
PROVIDERS: ATTEND Obstetrics & Gynecology
DX: O26.843 Uterine size-date discrepancy, third trimester (principal); Z3A.32 32 weeks gestation of pregnancy
CPT/HCPCS: 76805

== ENCOUNTER 2020-06-12 22:39 | Observation (INO) | payer MEDICAID ==
[2020-06-12] MEDS ORDERED: IV RINGERS,LACTATED 1000ML 1,000 ML IV SCH (22:45)
[2020-06-12] MEDS ORDERED: ACETAMINOPHEN 500 MG TABLET PO PRN (22:45)
[2020-06-12 22:57] LABS: BILIRUBIN,URINE NEGATIVE (NEG); CLARITY,URINE CLEAR; COLOR,URINE YELLOW; NITRITE,URINE NEGATIVE (NEG); PH,URINE 6.5 (<5.0-8.0); PROTEIN,URINE NEGATIVE (NEG-TRACE)
[2020-06-12 23:07] LABS: BACTERIA,URINE MANY /HPF (0-FEW); RBC,URINE OCC /HPF (0-2); SQUAMOUS EPITHELIAL CELL,UR MANY /LPF
== END 2020-06-13 00:53 | disposition home or self-care (01) ==
LOC: 3 SO LND 22:39
PROVIDERS: ADMIT Obstetrics & Gynecology; ATTEND Obstetrics & Gynecology
DX: O62.9 Abnormality of forces of labor, unspecified (principal); R10.30 Lower abdominal pain, unspecified; Z3A.35 35 weeks gestation of pregnancy
CPT/HCPCS: 81001; 87086; G0378; G0379

== ENCOUNTER 2020-06-15 23:44 | Observation (INO) | payer MEDICAID ==
[2020-06-15] MEDS ORDERED: IV RINGERS,LACTATED 1000ML 1,000 ML IV SCH (23:45)
[2020-06-15] MEDS ORDERED: ACETAMINOPHEN 500 MG TABLET PO PRN (23:45)
[2020-06-16 00:30] LABS: BILIRUBIN,URINE NEGATIVE (NEG); CLARITY,URINE CLEAR; COLOR,URINE YELLOW; NITRITE,URINE NEGATIVE (NEG); PH,URINE 6.5 (<5.0-8.0); PROTEIN,URINE NEGATIVE (NEG-TRACE)
[2020-06-16] MEDS ORDERED: IV RINGERS,LACTATED 1000ML 1,000 ML IV SCH (01:00)
[2020-06-16 01:09] LABS: BACTERIA,URINE MANY /HPF (0-FEW)
[2020-06-16 01:10] LABS: SQUAMOUS EPITHELIAL CELL,UR FEW /LPF
[2020-06-16 01:15] LABS: BARBITURATES NEG (NEG); BENZODIAZEPINES NEG (NEG); CANNABINOIDS NEG (NEG); COCAINE NEG (NEG); METHADONE NEG (NEG); OPIATES NEG (NEG); PHENCYCLIDINE NEG (NEG)
[2020-06-16 01:31] LABS: AMPHETAMINE/METHAMPHETAMINE NEG (NEG)
== END 2020-06-16 01:26 | disposition home or self-care (01) ==
LOC: 3 SO LND 23:44
PROVIDERS: ADMIT Obstetrics & Gynecology; ATTEND Obstetrics & Gynecology
DX: O62.9 Abnormality of forces of labor, unspecified (principal); O26.893 Other specified pregnancy related conditions, third trimester; R10.30 Lower abdominal pain, unspecified; Z3A.36 36 weeks gestation of pregnancy; Z79.899 Other long term (current) drug therapy
CPT/HCPCS: 80307; 81001; 87086; G0378; G0379

== ENCOUNTER 2020-07-05 19:11 | Inpatient (IN) | payer MEDICAID ==
[~2020-07-05] VITALS: Ht 154.9 cm; Wt 76.2 kg
[2020-07-05] MEDS ORDERED: ONDANSETRON PF 4 MG/2 ML VIAL. IVP PRN (19:15)
[2020-07-05] MEDS ORDERED: TERBUTALINE 1 MG/ML VIAL. SQ PRN (19:15)
[2020-07-05] MEDS ORDERED: 0.9 % SODIUM CHLORIDE 10 ML DISP.SYRIN. IV PRN (19:15)
[2020-07-05] MEDS ORDERED: IBUPROFEN 400 MG TABLET. PO PRN (19:15)
[2020-07-05] MEDS ORDERED: fentaNYL PF VIAL 100 MCG/2 ML VIAL IVP PRN (19:15)
[2020-07-05] MEDS ORDERED: ACETAMINOPHEN 325 MG TABLET. PO PRN (19:15)
[2020-07-05] MEDS ORDERED: IV RINGERS,LACTATED 1000ML 1,000 ML IV PRN (19:15)
[2020-07-05] MEDS ORDERED: MAG HYDROX/ALUMINUM HYD/SIMETH 30 ML ORAL.SUSP PO PRN (19:15)
[2020-07-05] MEDS ORDERED: LIDOCAINE 1% PF 30 ML VIAL. INJ PRN (19:15)
[2020-07-05] MEDS ORDERED: diphenhydrAMINE HCL 25 MG CAPSULE PO PRN (19:15)
[2020-07-05] MEDS ORDERED: DINOPROSTONE 10 MG SUPP.VAG VG ONE (19:15)
[2020-07-05] MEDS ORDERED: OXYTOCIN 30 UNIT/500 ML PREMIX 500 ML IV PRN (19:15)
[2020-07-05 20:01] LABS: BILIRUBIN,URINE NEGATIVE (NEG); CLARITY,URINE CLOUDY; COLOR,URINE YELLOW; NITRITE,URINE NEGATIVE (NEG); PROTEIN,URINE NEGATIVE (NEG-TRACE)
[2020-07-05 20:05] LABS: SQUAMOUS EPITHELIAL CELL,UR MOD /LPF
[2020-07-05 20:06] LABS: BACTERIA,URINE MANY /HPF (0-FEW); RBC,URINE OCC /HPF (0-2)
[2020-07-05 20:07] LABS: BARBITURATES NEG (NEG); BENZODIAZEPINES NEG (NEG); CANNABINOIDS NEG (NEG); COCAINE NEG (NEG); METHADONE NEG (NEG); OPIATES NEG (NEG); PHENCYCLIDINE NEG (NEG)
[2020-07-05 20:08] LABS: BASO % 0 % (0-3); EOS % 0 % (0-3); HEMATOCRIT 28.7 % (36.0-47.0); HEMOGLOBIN 9.9 g/dL (12.0-15.5); LYMPH # 2.1 x10^3/uL (1.0-4.8); LYMPH % 21 % (24-48); MEAN CORPUSCULAR HEMOGLOBIN 25 pg (25-35); MEAN CORPUSCULAR HGB CONC 34 g/dL (31-37); MEAN CORPUSCULAR VOLUME 72 fL (79-100); MONO # 0.7 x10^3/uL (0.0-1.1); MONO % 7 % (0-9); NEUT # 7.1 x10^3/uL (1.8-7.7); NEUT % 71 % (31-73); PLATELET COUNT 311 x10^3/uL (140-400); RED BLOOD COUNT 3.99 x10^6/uL (3.50-5.40); WHITE BLOOD COUNT 9.9 x10^3/uL (4.0-11.0)
[2020-07-05 20:08] LABS: AMPHETAMINE/METHAMPHETAMINE NEG (NEG)
--- NOTE | 2020-07-05 21:09 | PDOC1 ---
OB - History Hx of Present Care: Good Care Ultrasounds: Normal mid trimester US Obstetrical Complications: None Medical Complications: None Past Family/Social History * Past Medical, Surgical, Family and Obstetric Histories reviewed from chart. Rubella: Immune RPR/VDRL: Negative GBS Status: Negative HBsAG: Negative OB - Chief Complaint & HPI Date of Admission: Date of Admission: Jul 05, 2020 at 19:11 Chief Complaint/History : 4 Para: 3 EGA: 39 Reason for admission: induction of labor Indication for induction: maternal discomfort Admission Nurse Assessment Rev: Yes OB - Admission Exam Physical Exam HEENT: Normal Heart: Regular Rate Lungs: Clear Abdomen: Gravid, Non tender, Soft Extremities: Edema Reflexes: Normal Cervical Dilatation: 1cm Effacement: 50% Station: -3 Membranes: Intact Heart Rate: Normal Accelerations: Accelerations Present Decelerations: No decelerations Contractions on Admission: >10 Minutes Apart Text A: 39 wks IUP IOL secondary discomforts P: Admit cervidil, then pitocin in am. CESAR WEST Jr, MD Jul 05, 2020 21:09
[2020-07-05 21:24] VITALS: BP 127/67
[2020-07-06] MEDS ORDERED: ROPIVacaine 0.2% PF 10 ML VIAL. ONE ×2 (01:06→02:00)
[2020-07-06] MEDS ORDERED: L&D EPIDURAL SYRINGE 50 ML ONE (01:07)
[2020-07-06] MEDS ORDERED: OXYTOCIN PREMIX 30 UNIT/500 ML NS BAG. IV ONE (01:30)
[2020-07-06] MEDS ORDERED: L&D EPIDURAL 50 ML SYRINGE. ONE (02:00)
--- NOTE | 2020-07-06 03:48 | PDOC ---
VAGINAL DELIVERY DATE DATE: 07/06/20 TIME: 03:47 : 4 Para: 4 EGA: 39 VAGINAL DELIVERY: VTX VACCUM ASSISTED: No PLACENTA: Spontaneous 8/9 SEX: Male WEIGHT Weight [ 4005 gm] Nuchal Cord: Yes, Times 1 Amniotic Fluid: Clear PAIN: Epidural EPISIOTOMY: No EXTENSION: No EBL 300 ml COMPLICATIONS none CONDITION pt. stable Signs of Intrauterine Infectio: None Shoulder Dystocia: No, Jojo Maneuver CESAR WEST Jr, MD Jul 06, 2020 03:48
[2020-07-06] MEDS ORDERED: ZOLPIDEM 5 MG TABLET. PO PRN (04:00)
[2020-07-06] MEDS ORDERED: SIMETHICONE 80 MG TAB.CHEW PO PRN (04:00)
[2020-07-06] MEDS ORDERED: HYDROCORTISONE 1% TOPICAL OINTMENT 30GM TUBE. TP PRN (04:00)
[2020-07-06] MEDS ORDERED: MAG HYDROX/ALUMINUM HYD/SIMETH 30 ML ORAL.SUSP PO PRN (04:00)
[2020-07-06] MEDS ORDERED: TDaP (Adacel) per PROTOCOL. MC PRN (04:00)
[2020-07-06] MEDS ORDERED: BENZOCAINE 20% TOPICAL AEROSOL SPRAY 57GM CAN. TP PRN (04:00)
[2020-07-06] MEDS ORDERED: MAGNESIUM HYDROXIDE 2,400 MG/30 ML ORAL.SUSP. PO PRN (04:00)
[2020-07-06] MEDS ORDERED: ACETAMINOPHEN 325 MG TABLET. PO PRN (04:00)
[2020-07-06] MEDS ORDERED: PHENYLEPH/MINERAL OIL/PETROLAT RECTAL OINTMENT TUBE. RC PRN (04:00)
[2020-07-06] MEDS ORDERED: MMR per PROTOCOL. MC PRN (04:00)
[2020-07-06] MEDS ORDERED: 0.9 % SODIUM CHLORIDE 10 ML DISP.SYRIN. IV PRN (04:00)
[2020-07-06] MEDS ORDERED: DOCUSATE SODIUM 100 MG CAPSULE. PO PRN (04:00)
[2020-07-06] MEDS ORDERED: OXYTOCIN 30 UNIT/500 ML PREMIX 500 ML IV PRN ×2 (04:00→07:00)
[2020-07-06] MEDS ORDERED: diphenhydrAMINE HCL 25 MG CAPSULE PO PRN (04:00)
[2020-07-06] MEDS: IBUPROFEN 400 MG TABLET. PO PRN ×2 (07:07→17:11)
[2020-07-06 07:20] VITALS: BP 119/70
[2020-07-06] MEDS: MULTIVITAMIN with MINERAL TABLET. PO SCH (09:08)
[2020-07-06] MEDS: oxyCODONE/APAP 5/325 1 TAB TABLET PO PRN ×3 (11:06→21:37)
[2020-07-06 11:11] VITALS: BP 99/44
[2020-07-06 15:05] VITALS: BP 123/82
[2020-07-06 20:08] VITALS: BP 115/73
[2020-07-07 00:02] VITALS: BP 105/57
[2020-07-07] MEDS: IBUPROFEN 400 MG TABLET. PO PRN ×2 (05:09→13:22)
[2020-07-07 05:49] VITALS: BP 110/46
[2020-07-07 06:14] LABS: BASO % 0 % (0-3); EOS # 0.1 x10^3/uL (0.0-0.7); EOS % 1 % (0-3); HEMATOCRIT 27.9 % (36.0-47.0); HEMOGLOBIN 9.4 g/dL (12.0-15.5); LYMPH # 3.1 x10^3/uL (1.0-4.8); LYMPH % 31 % (24-48); MEAN CORPUSCULAR HEMOGLOBIN 25 pg (25-35); MEAN CORPUSCULAR HGB CONC 34 g/dL (31-37); MEAN CORPUSCULAR VOLUME 74 fL (79-100); MONO # 0.9 x10^3/uL (0.0-1.1); MONO % 9 % (0-9); NEUT % 59 % (31-73); PLATELET COUNT 252 x10^3/uL (140-400); WHITE BLOOD COUNT 10.2 x10^3/uL (4.0-11.0)
[2020-07-07] MEDS ORDERED: FERROUS SULFATE 325 MG TABLET. PO SCH (08:00)
[2020-07-07] MEDS: oxyCODONE/APAP 5/325 1 TAB TABLET PO PRN (08:12)
[2020-07-07] MEDS: MULTIVITAMIN with MINERAL TABLET. PO SCH (08:12)
--- NOTE | 2020-07-07 10:20 | PDOC3 ---
OB DISCHARGE SUMMARY DATE OF ADMISSION: 07/05/20 DATE OF DISCHARGE: 07/07/20 REASON FOR ADMISSION: Induction of labor INTRAPARTUM PROCEDURES: Spontanous Vag Deliv DISCHARGE DIAGNOSIS: Term Delivered DISCHARGE INFORMATION: Activity (ad angeline), Diet (regular), Instructions (pelvic rest x 6 wks) HOSPITAL COURSE Term gestation delivered vaginally without complications. CESAR WEST Jr, MD Jul 07, 2020 10:20
[2020-07-07] MEDS ORDERED: IBUP-1027 PO (10:22)
--- NOTE | 2020-07-07 10:22 | DISCH ---
DISCHARGE INSTRUCTIONS Condition on Discharge Condition on Discharge: Stable Activity After Discharge Activity Instructions for Disc: Activity as tolerated Lifting Instructions after Dis: No heavy lifting Driving Instructions after Dis: Do not drive today Diet after Discharge Diet after Discharge: Regular Contacting the DREfren after DC Call your doctor for: Concerns you may have Follow-Up Follow up with: Dr. Peraza in 6 wks. CESAR PERAZA Jr, MD Jul 07, 2020 10:22
[2020-07-07 11:00] VITALS: BP 108/62
[2020-07-07 16:45] VITALS: BP 113/76
--- NOTE | 2020-07-07 17:00 | NUR ---
Discharge and follow up instructions reviewed and given to pt along with a Rx for ibuprofen. Pt verbalized understanding and denied any questions. Pt taken out of the hospital per W/C by staff.
== END 2020-07-07 17:00 | disposition home or self-care (01) | DRG 807 ==
LOC: 3 SO LND 19:11 → 3 NORTH 07-06 07:25
PROVIDERS: ADMIT Obstetrics & Gynecology; ATTEND Obstetrics & Gynecology
PROC: 10E0XZZ Delivery of Products of Conception, External Approach (ICD-10-PCS; principal; 2020-07-06)
PROC: 3E0R3BZ Introduction of Anesthetic Agent into Spinal Canal, Percutaneous Approach (ICD-10-PCS; 2020-07-06)
PROC: 00HU33Z Insertion of Infusion Device into Spinal Canal, Percutaneous Approach (ICD-10-PCS; 2020-07-06)
DX: O69.81X0 Labor and delivery complicated by cord around neck, without compression, not applicable or unspecified (principal); Z37.0 Single live birth; Z3A.39 39 weeks gestation of pregnancy; Z20.828 Contact with and (suspected) exposure to other viral communicable diseases
CPT/HCPCS: 36415; 80307; 81001; 85025; 86592; 86850; 86900; 86901; 87086; 87426; J2590; J2795; J3010; J7120; G0378; Q0163; U0003-CS

== ENCOUNTER 2020-10-09 20:06 | Emergency (ER) | payer MEDICAID ==
[~2020-10-09] VITALS: Ht 154.9 cm; Wt 59.8 kg
[2020-10-09 20:36] LABS: BILIRUBIN,URINE NEGATIVE (NEG); CLARITY,URINE CLEAR; COLOR,URINE YELLOW; NITRITE,URINE NEGATIVE (NEG); PH,URINE 6.5 (<5.0-8.0); PROTEIN,URINE NEGATIVE (NEG-TRACE)
[2020-10-09 20:42] LABS: BACTERIA,URINE MODERATE /HPF (0-FEW)
[2020-10-09 21:21] VITALS: BP 126/73
== END 2020-10-09 21:40 | disposition left against medical advice (07) ==
LOC: ER 20:06
DX: O26.891 Other specified pregnancy related conditions, first trimester (principal); R10.30 Lower abdominal pain, unspecified; Z3A.00 Weeks of gestation of pregnancy not specified; Z53.21 Procedure and treatment not carried out due to patient leaving prior to being seen by health care provider
CPT/HCPCS: 81001; 81025; 87086

== ENCOUNTER 2020-12-21 16:39 | Emergency (ER) | payer OTHER, MEDICAID ==
[~2020-12-21] VITALS: Ht 154.9 cm; Wt 62.2 kg
[2020-12-21 17:09] VITALS: BP 123/87
[2020-12-21 17:25] LABS: BILIRUBIN,URINE NEGATIVE (NEG); CLARITY,URINE CLEAR; COLOR,URINE YELLOW; NITRITE,URINE NEGATIVE (NEG); PH,URINE 7.5 (<5.0-8.0); PROTEIN,URINE NEGATIVE (NEG-TRACE)
[2020-12-21 17:31] LABS: BACTERIA,URINE MODERATE /HPF (0-FEW)
[2020-12-21 17:32] LABS: AMORPHOUS SEDIMENT,UR PRESENT /HPF; RBC,URINE 0 /HPF (0-2)
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
[2020-12-21] MEDS ORDERED: CYCL10TA2 PO (19:13)
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
== END 2020-12-21 19:24 | disposition home or self-care (01) ==
LOC: ER 16:39
DX: O26.891 Other specified pregnancy related conditions, first trimester (principal); G89.11 Acute pain due to trauma; M54.5 Low back pain; M54.2 Cervicalgia; V49.9XXA Car occupant (driver) (passenger) injured in unspecified traffic accident, initial encounter; Y93.89 Activity, other specified; Y92.89 Other specified places as the place of occurrence of the external cause; Y99.8 Other external cause status; Z3A.14 14 weeks gestation of pregnancy
CPT/HCPCS: 76815; 81001; 81025; 87086; 99284

== ENCOUNTER → 2021-03-26 | Outpatient (CLI) | payer MEDICAID ==
[~2021-03-26] MED LIST changes: +CYCL10TA2 PO
--- NOTE | 2021-03-27 10:05 | RAD ---
EXAM: OB ULTRASOUND, > 14 WEEKS HISTORY: Size and dates discrepancy. COMPARISON: 12/21/2020 TECHNIQUE: Multiple grayscale images, color Doppler, and M-mode images of the uterus are obtained. FINDINGS: There is a single intrauterine gestation in cephalic presentation. The placenta is anterior fundal in location without evidence of placenta previa. The amount of amniotic fluid appears appropriate. Amn iotic fluid index is 11.3 cm. Cervical length is 4.32 cm. Biometrical data: BPD = 7.12 cm for 28 weeks 4 days. HC = 25.6 cm for 27 weeks 5 days. AC = 24.4 cm for 28 weeks 4 days. FL = 5.18 cm for 27 weeks 5 days. HC/AC ratio = 1.05. Overall, the estimated sonographic gestational age is 28 weeks and 1 day for an estimated date of del marzena of 06/17/2021. The estimated date of delivery provided by the last menstrual period is 06/19/2021 . Estimated weight is 1193 grams. A 4 chamber heart is identified with positive cardiac activity. The estimated heart rate is 141 beats per minute. breathing motion is not seen during the exam. Bilateral upper and lower extremities are identified. There is a three-vessel cord with cord insertion visualized. stomach and urinary bladder are identified. Both kidneys are seen. The spine and brain are unremarkable. The facial profile is not well seen due to advanced gestational age. The maternal ovaries are obscured. IMPRESSION: 1. Single intrauterine fetus in cephalic presentation with a normal heart rate and gestational age ba sed on ultrasound measurements of 28 weeks and 1 day. The estimated weight is at the 52nd perce ntile for a gestational age of 27 weeks and 6 days based on LMP. 2. Suboptimal evaluation of the facial profile due to advanced gestational age. The remainder t he anatomy survey is unremarkable. Electronically signed by: Yadira Hill MD (03/27/2021 10:03 AM) [id number]
== END ==
LOC: US 14:22
PROVIDERS: ATTEND Obstetrics & Gynecology
DX: O26.842 Uterine size-date discrepancy, second trimester (principal); Z3A.28 28 weeks gestation of pregnancy
CPT/HCPCS: 76805

== ENCOUNTER 2021-06-03 15:10 | Inpatient (IN) | payer MEDICAID ==
[~2021-06-03] VITALS: Ht 154.9 cm; Wt 69.8 kg
[~2021-06-03 15:10] MED LIST changes: +CYCL10TA19 PO; -CYCL10TA2 PO
[2021-06-03 16:07] LABS: BASO % 0 % (0-3); EOS # 0.1 x10^3/uL (0.0-0.7); EOS % 1 % (0-3); HEMATOCRIT 28.6 % (36.0-47.0); HEMOGLOBIN 9.9 g/dL (12.0-15.5); LYMPH % 21 % (24-48); MEAN CORPUSCULAR HEMOGLOBIN 26 pg (25-35); MEAN CORPUSCULAR HGB CONC 35 g/dL (31-37); MEAN CORPUSCULAR VOLUME 74 fL (79-100); MONO # 0.8 x10^3/uL (0.0-1.1); MONO % 9 % (0-9); NEUT # 6.9 x10^3/uL (1.8-7.7); NEUT % 70 % (31-73); PLATELET COUNT 298 x10^3/uL (140-400); RED BLOOD COUNT 3.87 x10^6/uL (3.50-5.40); RED CELL DISTRIBUTION WIDTH 14.3 % (11.5-14.5); WHITE BLOOD COUNT 9.9 x10^3/uL (4.0-11.0)
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
[2021-06-03 17:34] LABS: FETAL BLEED VOL 0 mL
--- NOTE | 2021-06-03 17:34 | PDOC1 ---
OB - History Hx of Present Care: Limited Care Ultrasounds: Normal mid trimester US Obstetrical Complications: None Medical Complications: None Past Family/Social History * Past Medical, Surgical, Family and Obstetric Histories reviewed from chart. Rubella: Immune RPR/VDRL: Negative GBS Status: Positive HBsAG: Negative OB - Chief Complaint & HPI Date of Admission: Date of Admission: Jun 03, 2021 at 15:10 Chief Complaint/History : 5 Para: 4 EGA: 37 Reason for admission: active labor Admission Nurse Assessment Rev: Yes OB - Admission Exam Physical Exam HEENT: Normal Heart: Regular Rate Lungs: Clear Abdomen: Gravid, Non tender, Soft Extremities: Edema Reflexes: Normal Cervical Dilatation: 4cm Effacement: 75% Station: -3 Membranes: Intact Heart Rate: Normal Accelerations: Accelerations Present Decelerations: No decelerations Contractions on Admission: < 5 Minutes Apart Intensity: Moderate Text A: 37 wks IUP in active labor GBS positive Abd trauma > 24 hours P: OB sono ASHLEE normal. Start Pen G prophylaxis. Admit for labor management. CESAR WEST Jr, MD Jun 03, 2021 17:34
[2021-06-03] MEDS ORDERED: IV RINGERS,LACTATED 1000ML 1,000 ML IV PRN (18:00)
[2021-06-03] MEDS ORDERED: fentaNYL PF VIAL 100 MCG/2 ML VIAL IVP PRN ×2 (18:00)
[2021-06-03] MEDS ORDERED: LIDOCAINE 1% PF 30 ML VIAL. INJ PRN (18:00)
[2021-06-03] MEDS ORDERED: IBUPROFEN 400 MG TABLET. PO PRN (18:00)
[2021-06-03] MEDS ORDERED: PENICILLIN G K 5,000,000 UNIT in IV DEXTROSE 5% 100ML 100 ML IV ONE (18:00)
[2021-06-03] MEDS ORDERED: OXYTOCIN 30 UNIT/500 ML PREMIX 500 ML IV PRN ×2 (18:00)
[2021-06-03] MEDS ORDERED: TERBUTALINE 1 MG/ML VIAL. SQ PRN (18:00)
[2021-06-03] MEDS ORDERED: 0.9 % SODIUM CHLORIDE 10 ML DISP.SYRIN. IV PRN (18:00)
[2021-06-03 18:08] VITALS: BP 117/56
[2021-06-03] MEDS: IV RINGERS,LACTATED 1000ML 1,000 ML IV PRN ×2 (18:32→20:30)
[2021-06-03] MEDS ORDERED: NALOXONE 0.4 MG/ML VIAL. IV PRN (20:30)
[2021-06-03] MEDS ORDERED: L&D EPIDURAL SYRINGE 50 ML EPID PRN (20:30)
[2021-06-03] MEDS ORDERED: ePHEDrine PF IN SALINE 50 MG/10 ML SYRINGE. IV PRN (20:30)
[2021-06-03] MEDS ORDERED: ONDANSETRON PF 4 MG/2 ML VIAL. IV PRN (20:30)
[2021-06-03] MEDS ORDERED: fentaNYL PF VIAL 100 MCG/2 ML VIAL EPID ONE (20:30)
[2021-06-03] MEDS ORDERED: IV RINGERS,LACTATED 1000ML 1,000 ML IV ONE (20:30)
[2021-06-03] MEDS ORDERED: ROPIVacaine 0.2% PF 10 ML VIAL. ONE (20:31)
[2021-06-03 21:47] LABS: BARBITURATES NEG (NEG); BENZODIAZEPINES NEG (NEG); CANNABINOIDS NEG (NEG); COCAINE NEG (NEG); METHADONE NEG (NEG); OPIATES NEG (NEG); PHENCYCLIDINE NEG (NEG)
[2021-06-03 21:48] LABS: AMPHETAMINE/METHAMPHETAMINE NEG (NEG)
[2021-06-03] MEDS ORDERED: PENICILLIN G K 2,500,000 UNIT in IV DEXTROSE 5% 50 ML IV SCH (22:00)
--- NOTE | 2021-06-04 01:40 | PDOC4 ---
VAGINAL DELIVERY DATE DATE: 06/04/21 TIME: 01:39 : 5 Para: 5 EGA: 37 VAGINAL DELIVERY: VTX VACCUM ASSISTED: No PLACENTA: Spontaneous 9/9 SEX: Male WEIGHT Weight [ 3315 gm] Nuchal Cord: No Amniotic Fluid: Clear PAIN: Epidural EPISIOTOMY: No EXTENSION: No EBL 300 ml COMPLICATIONS none CONDITION pt. stable Signs of Intrauterine Infectio: None Shoulder Dystocia: No CESAR WEST Jr, MD Jun 04, 2021 01:40
[2021-06-04] MEDS ORDERED: PHENYLEPH/MINERAL OIL/PETROLAT RECTAL OINTMENT TUBE. RC PRN (01:45)
[2021-06-04] MEDS ORDERED: MAG HYDROX/ALUMINUM HYD/SIMETH 30 ML ORAL.SUSP PO PRN (01:45)
[2021-06-04] MEDS ORDERED: BENZOCAINE 20% TOPICAL AEROSOL SPRAY 57GM CAN. TP PRN (01:45)
[2021-06-04] MEDS ORDERED: ACETAMINOPHEN 325 MG TABLET. PO PRN (01:45)
[2021-06-04] MEDS ORDERED: TDaP (BOOSTRIX) per PROTOCOL. MC PRN (01:45)
[2021-06-04] MEDS ORDERED: OXYTOCIN 30 UNIT/500 ML PREMIX 500 ML IV PRN (01:45)
[2021-06-04] MEDS ORDERED: HYDROCORTISONE 1% TOPICAL OINTMENT 30GM TUBE. TP PRN (01:45)
[2021-06-04] MEDS ORDERED: ZOLPIDEM 5 MG TABLET. PO PRN (01:45)
[2021-06-04] MEDS ORDERED: 0.9 % SODIUM CHLORIDE 10 ML DISP.SYRIN. IV PRN (01:45)
[2021-06-04] MEDS ORDERED: MAGNESIUM HYDROXIDE 2,400 MG/30 ML ORAL.SUSP. PO PRN (01:45)
[2021-06-04] MEDS ORDERED: MMR per PROTOCOL. MC PRN (01:45)
[2021-06-04] MEDS ORDERED: SIMETHICONE 80 MG TAB.CHEW PO PRN (01:45)
[2021-06-04 04:04] VITALS: BP 120/67
[2021-06-04] MEDS: IBUPROFEN 400 MG TABLET. PO PRN ×2 (05:04→13:58)
[2021-06-04] MEDS: diphenhydrAMINE HCL 25 MG CAPSULE PO PRN (05:04)
[2021-06-04 05:10] VITALS: BP 123/72
[2021-06-04 08:13] VITALS: BP 113/65
[2021-06-04] MEDS: DOCUSATE SODIUM 100 MG CAPSULE. PO PRN ×3 (10:03→21:32)
[2021-06-04] MEDS: MULTIVITAMIN with MINERAL TABLET. PO SCH (10:06)
[2021-06-04] MEDS: FERROUS SULFATE 325 MG TABLET. PO SCH ×2 (10:49→17:07)
[2021-06-04] MEDS: oxyCODONE/APAP 5/325 1 TAB TABLET PO PRN ×3 (10:50→21:33)
[2021-06-04 12:00] VITALS: BP 120/72
[2021-06-04 16:45] VITALS: BP 106/59
[2021-06-04 21:15] VITALS: BP 111/57
[2021-06-05] MEDS: oxyCODONE/APAP 5/325 1 TAB TABLET PO PRN ×4 (01:29→20:30)
[2021-06-05] MEDS: IBUPROFEN 400 MG TABLET. PO PRN ×3 (01:29→17:06)
[2021-06-05 01:30] VITALS: BP 115/60
[2021-06-05] MEDS: diphenhydrAMINE HCL 25 MG CAPSULE PO PRN ×2 (01:38→09:04)
[2021-06-05 05:30] VITALS: BP 112/58
[2021-06-05 08:10] LABS: BASO % 0 % (0-3); EOS # 0.2 x10^3/uL (0.0-0.7); EOS % 2 % (0-3); HEMATOCRIT 30.3 % (36.0-47.0); HEMOGLOBIN 10.1 g/dL (12.0-15.5); LYMPH # 4.1 x10^3/uL (1.0-4.8); LYMPH % 37 % (24-48); MEAN CORPUSCULAR HEMOGLOBIN 26 pg (25-35); MEAN CORPUSCULAR HGB CONC 33 g/dL (31-37); MEAN CORPUSCULAR VOLUME 77 fL (79-100); MONO # 0.8 x10^3/uL (0.0-1.1); MONO % 8 % (0-9); NEUT # 5.8 x10^3/uL (1.8-7.7); NEUT % 53 % (31-73); PLATELET COUNT 290 x10^3/uL (140-400); RED BLOOD COUNT 3.95 x10^6/uL (3.50-5.40); RED CELL DISTRIBUTION WIDTH 14.7 % (11.5-14.5); WHITE BLOOD COUNT 10.9 x10^3/uL (4.0-11.0)
[2021-06-05] MEDS: MULTIVITAMIN with MINERAL TABLET. PO SCH (08:34)
[2021-06-05] MEDS: DOCUSATE SODIUM 100 MG CAPSULE. PO PRN ×3 (08:34→20:29)
[2021-06-05] MEDS: FERROUS SULFATE 325 MG TABLET. PO SCH ×2 (08:34→17:05)
--- NOTE | 2021-06-05 08:36 | PDOC ---
OB Progress Note Date of Service 06/05/21 Time of Evaluation 0835 Notes PT. feeling well. No complaints. Lab Laboratory Tests Test 06/03/21 15:51 06/03/21 17:44 06/03/21 21:20 06/05/21 07:05 White Blood Count 9.9 x10^3/uL (4.0-11.0) 10.9 x10^3/uL (4.0-11.0) Red Blood Count 3.87 x10^6/uL (3.50-5.40) 3.95 x10^6/uL (3.50-5.40) Hemoglobin 9.9 g/dL (12.0-15.5) 10.1 g/dL (12.0-15.5) Hematocrit 28.6 % (36.0-47.0) 30.3 % (36.0-47.0) Mean Corpuscular Volume 74 fL (79-100) 77 fL (79-100) Mean Corpuscular Hemoglobin 26 pg (25-35) 26 pg (25-35) Mean Corpuscular Hemoglobin Concent 35 g/dL (31-37) 33 g/dL (31-37) Red Cell Distribution Width 14.3 % (11.5-14.5) 14.7 % (11.5-14.5) Platelet Count 298 x10^3/uL (140-400) 290 x10^3/uL (140-400) Neutrophils (%) (Auto) 70 % (31-73) 53 % (31-73) Lymphocytes (%) (Auto) 21 % (24-48) 37 % (24-48) Monocytes (%) (Auto) 9 % (0-9) 8 % (0-9) Eosinophils (%) (Auto) 1 % (0-3) 2 % (0-3) Basophils (%) (Auto) 0 % (0-3) 0 % (0-3) Neutrophils # (Auto) 6.9 x10^3/uL (1.8-7.7) 5.8 x10^3/uL (1.8-7.7) Lymphocytes # (Auto) 2.0 x10^3/uL (1.0-4.8) 4.1 x10^3/uL (1.0-4.8) Monocytes # (Auto) 0.8 x10^3/uL (0.0-1.1) 0.8 x10^3/uL (0.0-1.1) Eosinophils # (Auto) 0.1 x10^3/uL (0.0-0.7) 0.2 x10^3/uL (0.0-0.7) Basophils # (Auto) 0.0 x10^3/uL (0.0-0.2) 0.0 x10^3/uL (0.0-0.2) Kleihauer-Betke Volume Blood 0 mL Kleihauer-Betke Stain 0.0000 RATIO Treponema pallidum Antibody Nonreactive (Nonreactive) SARS-CoV-2 RNA (ANNELISE) Negative (Negative) SARS-CoV-2 Antigen (Rapid) Negative (NEGATIVE) Urine Opiates Screen Neg (NEG) Urine Methadone Screen Neg (NEG) Urine Barbiturates Neg (NEG) Urine Phencyclidine Screen Neg (NEG) Urine Amphetamine/Methamphetamine Neg (NEG) Urine Benzodiazepines Screen Neg (NEG) Urine Cocaine Screen Neg (NEG) Urine Cannabinoids Screen Neg (NEG) Urine Ethyl Alcohol Neg (NEG) Laboratory Tests Test 06/05/21 07:05 White Blood Count 10.9 x10^3/uL (4.0-11.0) Red Blood Count 3.95 x10^6/uL (3.50-5.40) Hemoglobin 10.1 g/dL (12.0-15.5) Hematocrit 30.3 % (36.0-47.0) Mean Corpuscular Volume 77 fL (79-100) Mean Corpuscular Hemoglobin 26 pg (25-35) Mean Corpuscular Hemoglobin Concent 33 g/dL (31-37) Red Cell Distribution Width 14.7 % (11.5-14.5) Platelet Count 290 x10^3/uL (140-400) Neutrophils (%) (Auto) 53 % (31-73) Lymphocytes (%) (Auto) 37 % (24-48) Monocytes (%) (Auto) 8 % (0-9) Eosinophils (%) (Auto) 2 % (0-3) Basophils (%) (Auto) 0 % (0-3) Neutrophils # (Auto) 5.8 x10^3/uL (1.8-7.7) Lymphocytes # (Auto) 4.1 x10^3/uL (1.0-4.8) Monocytes # (Auto) 0.8 x10^3/uL (0.0-1.1) Eosinophils # (Auto) 0.2 x10^3/uL (0.0-0.7) Basophils # (Auto) 0.0 x10^3/uL (0.0-0.2) Medications Current Medications Ringer's Solution 1,000 ml @ 125 mls/hr Q8H PRN IV PER PROTOCOL Last administered on 06/03/21at 20:30; Start 06/03/21 at 16:00; Stop 06/04/21 at 05:50; Status DC Sodium Chloride (Normal Saline Flush) 3 ml QSHIFT PRN IV AFTER MEDS AND BLOOD DRAWS; Start 06/03/21 at 18:00; Status Cancel Ringer's Solution 1,000 ml @ 125 mls/hr Q8H PRN IV PER PROTOCOL; Start 06/03/21 at 18:00 Fentanyl Citrate (Fentanyl 2ml Vial) 50 mcg PRN Q30MIN PRN IVP Mild to moderate pain; Start 06/03/21 at 18:00; Stop 06/04/21 at 05:50; Status DC Fentanyl Citrate (Fentanyl 2ml Vial) 100 mcg PRN Q30MIN PRN IVP Severe pain; Start 06/03/21 at 18:00; Stop 06/04/21 at 05:50; Status DC Terbutaline Sulfate (Brethine) 0.25 mg 1X PRN PRN SQ SEE COMMENTS; Start 06/03/21 at 18:00; Stop 06/04/21 at 05:50; Status DC Lidocaine HCl (Xylocaine 1% Pf 30ml Vial) 30 ml 1X PRN PRN INJ SEE COMMENTS; Start 06/03/21 at 18:00; Stop 06/04/21 at 05:50; Status DC Oxytocin 500 ml @ 0 mls/hr CONT PRN IV SEE I/O RECORD; Start 06/03/21 at 18:00 Oxytocin 500 ml @ 0 mls/hr CONT PRN PRN IV Post delivery bleeding; Start 06/03/21 at 18:00 Ibuprofen (Motrin) 800 mg PRN Q6HRS PRN PO PAIN; Start 06/03/21 at 18:00; Status Cancel Penicillin G Potassium [id number] unit/Dextrose 100 ml @ 100 mls/hr 1X ONCE IV Last administered on 06/03/21at 18:32; Start 06/03/21 at 18:00; Stop 06/03/21 at 18:59; Status DC Penicillin G Potassium [id number] unit/Dextrose 50 ml @ 100 mls/hr Q4H IV Last administered on 06/03/21at 22:44; Start 06/03/21 at 22:00; Stop 06/04/21 at 05:50; Status DC Ringer's Solution 1,000 ml @ 0 mls/hr Q0M ONCE IV Last administered on 06/04/21at 00:04; Start 06/03/21 at 20:30; Stop 06/03/21 at 20:32; Status DC Ephedrine Sulfate (ePHEDrine PF IN SALINE SYRINGE) 10 mg PRN Q2MIN PRN IV IF SBP<90; Start 06/03/21 at 20:30; Stop 06/04/21 at 05:50; Status DC Naloxone HCl (Narcan) 0.04 mg PRN Q1MIN PRN IV SEE COMMENTS; Start 06/03/21 at 20:30 Fentanyl Citrate (Fentanyl 2ml Vial) 100 mcg 1X ONCE EPID ; Start 06/03/21 at 20:30; Stop 06/03/21 at 20:32; Status DC Fentanyl Citrate 50 ml @ 14 mls/hr CONT PRN EPID PAIN Last administered on 06/04/21at 00:00; Start 06/03/21 at 20:30; Stop 06/04/21 at 05:50; Status DC Ondansetron HCl (Zofran) 4 mg PRN Q6HRS PRN IV NAUSEA/VOMITING; Start 06/03/21 at 20:30 Ropivacaine (Naropin 0.2%) 10 ml STK-MED ONCE .ROUTE ; Start 06/03/21 at 20:31; Stop 06/03/21 at 20:31; Status DC Sodium Chloride (Normal Saline Flush) 10 ml QSHIFT PRN IV AFTER MEDS AND BLOOD DRAWS; Start 06/04/21 at 01:45 Oxytocin 500 ml @ 62.5 mls/hr CONT PRN IV SEE I/O RECORD; Start 06/04/21 at 01:45; Stop 06/04/21 at 09:44; Status DC Acetaminophen (Tylenol) 650 mg PRN Q6HRS PRN PO MILD PAIN / TEMP > 100.3'F; Start 06/04/21 at 01:45 Ibuprofen (Motrin) 800 mg PRN Q8HRS PRN PO INFLAMMATION/PAIN PREVENTION Last administered on 06/05/21at 01:29; Start 06/04/21 at 01:45 Docusate Sodium (Colace) 100 mg PRN BID PRN PO CONSTIPATION 1ST CHOICE Last administered on 06/04/21at 21:32; Start 06/04/21 at 01:45 Magnesium Hydroxide (Milk Of Magnesia) 2,400 mg PRN DAILY PRN PO CONSTIPATION 2ND CHOICE; Start 06/04/21 at 01:45 Al Hydroxide/Mg Hydroxide (Mylanta Plus Xs) 30 ml PRN Q4HRS PRN PO HEARTBURN / GAS; Start 06/04/21 at 01:45 Simethicone (Gas-X) 80 mg PRN AFTMEALHC PRN PO GAS / BLOATING; Start 06/04/21 at 01:45 Diphenhydramine HCl (Benadryl) 25 mg PRN Q6HRS PRN PO ITCHING Last administered on 06/05/21at 01:38; Start 06/04/21 at 01:45 Benzocaine (Americaine) 1 spray PRN QID PRN TP TOPICAL PAIN; Start 06/04/21 at 01:45 Phenyleph/Shark Oil/Min Oil/Petrol (Preparation H) 1 matthew PRN QID PRN RC RECTAL PAIN; Start 06/04/21 at 01:45 Hydrocortisone (Cortaid) 1 matthew PRN QID PRN TP PERINEAL PAIN; Start 06/04/21 at 01:45 Ferrous Sulfate (Feosol) 325 mg BIDWMEALS PO Last administered on 06/04/21at 17:07; Start 06/04/21 at 11:00 Zolpidem Tartrate (Ambien) 5 mg PRN QHS PRN PO INSOMNIA, MAY REPEAT X1; Start 06/04/21 at 01:45 Info (Do NOT chart on this placeholder) 1 ea 1X PRN PRN MC SEE COMMENTS; Start 06/04/21 at 01:45 Info (Do NOT chart on this placeholder) 1 ea 1X PRN PRN MC SEE COMMENTS; Start 06/04/21 at 01:45 Oxycodone/ Acetaminophen (Percocet 5/325) 2 tab PRN Q4HRS PRN PO MODERATE PAIN, SEVERE PAIN Last administered on 06/05/21at 05:21; Start 06/04/21 at 01:45 Multivitamins (Thera M Plus) 1 tab DAILY PO Last administered on 06/04/21at 10:06; Start 06/04/21 at 09:00 Active Scripts Active Cyclobenzaprine Hcl 10 Mg Tablet 1 Tab PO TID PRN 7 Days Ibuprofen 400 Mg Tablet 800 Mg PO PRN Q8HRS PRN Ibuprofen 400 Mg Tablet 400 Mg PO PRN Q6HRS PRN 2 Days Ondansetron Odt (Ondansetron) 4 Mg Tab.rapdis 1 Tab PO PRN Q6-8HRS 2 Days Ibuprofen 600 Mg Tablet 600 Mg PO PRN Q6HRS PRN take with food or milk Zofran Odt (Ondansetron) 4 Mg Tab.rapdis 1 Tab SL Q8HRS Tablet (Pnv Cmb#95/Ferrous Fumarate/Fa) 1 Each Tablet 1 Tab PO DAILY Ibuprofen 800 Mg Tablet 800 Mg PO PRN Q8HRS PRN 10 Days Inavale 5-325 Tablet (Acetaminophen/Hydrocodone Bitart) 1 Each Tablet 1 Tab PO PRN Q6HRS PRN Zithromax (Azithromycin) 250 Mg Tablet 250 Mg PO DAILY Take 2 tablets today then 1 tablet daily until completed. Proair Hfa Inhaler (Albuterol Sulfate) 8.5 Gm Hfa.aer.ad 1 Puff INH PRN Q6HRS PRN Exam Abd: soft, non tender, fundus firm Assessment PPD#1 Plan of Care: Continue current Tx, Mgmt CESAR WEST Jr, MD Jun 05, 2021 08:36
[2021-06-05 09:30] VITALS: BP 104/68
[2021-06-05 17:05] VITALS: BP 110/61
[2021-06-05 21:20] VITALS: BP 98/54
[2021-06-06] MEDS: oxyCODONE/APAP 5/325 1 TAB TABLET PO PRN ×2 (00:32→14:51)
[2021-06-06] MEDS: IBUPROFEN 400 MG TABLET. PO PRN ×3 (00:33→17:59)
[2021-06-06 04:30] VITALS: BP 85/51
[2021-06-06 07:31] VITALS: BP 94/54
[2021-06-06] MEDS: MULTIVITAMIN with MINERAL TABLET. PO SCH (08:39)
[2021-06-06] MEDS: DOCUSATE SODIUM 100 MG CAPSULE. PO PRN (08:39)
[2021-06-06] MEDS: FERROUS SULFATE 325 MG TABLET. PO SCH ×2 (08:39→17:59)
[2021-06-06 17:20] VITALS: BP 109/68
--- NOTE | 2021-06-06 17:20 | PDOC3 ---
OB DISCHARGE SUMMARY DATE OF ADMISSION: 06/04/21 DATE OF DISCHARGE: 06/06/21 REASON FOR ADMISSION: Onset of labor INTRAPARTUM PROCEDURES: Spontanous Vag Deliv DISCHARGE DIAGNOSIS: Term Delivered DISCHARGE INFORMATION: Activity (ad angeline), Diet (regular), Instructions (pelvic rest x 6 wks) HOSPITAL COURSE Term gestation delivered vaginally without complications. CESAR WEST Jr, MD Jun 06, 2021 17:20
[2021-06-06] MEDS ORDERED: HYDR-2761 PO (17:23)
--- NOTE | 2021-06-06 17:25 | DISCH ---
DISCHARGE INSTRUCTIONS Condition on Discharge Condition on Discharge: Stable Activity After Discharge Activity Instructions for Disc: Activity as tolerated, Avoid exertion Lifting Instructions after Dis: No heavy lifting, No pulling or pushing, Do not lift >10 pounds Driving Instructions after Dis: Do not drive today Diet after Discharge Diet after Discharge: Regular Diet Texture: Regular Contacting the after DC Call your doctor for: Concerns you may have Follow-Up Follow up with: Dr. Peraza in 4 wks Treatment/Equipment after DC Adaptive Equipment Issued: None CESAR PERAZA Jr, MD Jun 06, 2021 17:25
--- NOTE | 2021-06-06 19:10 | NUR ---
RN went to room 381 to discharge pt and baby. FOB and mother placed in car seat. RN checked car seat straps and notified parents that the straps were too lose. Mother states she wants them lose because baby just got surgey and you guys are trying to hurt baby. RN educated pt on car seat saftey. Straps were tightened by FOB. PT refused to use wheelchair. Pt is stable and states she feels good. Pts family member is here to take them home. RN escorted pt to ER parking lot. RN pushed pt belongings and fob pushed infant in stroller. FOB placed car based and car seat in private vehicle.
== END 2021-06-06 19:10 | disposition home or self-care (01) | DRG 807 ==
LOC: 3 SO LND 15:10 → OBSVTOIN 15:10 → 3 SO LND 06-04 11:13
PROVIDERS: ADMIT Obstetrics & Gynecology; ATTEND Obstetrics & Gynecology
PROC: 10E0XZZ Delivery of Products of Conception, External Approach (ICD-10-PCS; principal; 2021-06-04)
PROC: 3E0R3BZ Introduction of Anesthetic Agent into Spinal Canal, Percutaneous Approach (ICD-10-PCS; 2021-06-04)
PROC: 00HU33Z Insertion of Infusion Device into Spinal Canal, Percutaneous Approach (ICD-10-PCS; 2021-06-04)
DX: O99.824 Streptococcus B carrier state complicating childbirth (principal); Z37.0 Single live birth; Z3A.37 37 weeks gestation of pregnancy; Z20.822 Contact with and (suspected) exposure to COVID-19
CPT/HCPCS: 36415; 59025; 76815; 80307; 85025; 85460; 86592; 86850; 86900; 86901; 87426; J2540; J3010; J7060; J7120; U0003; U0005; G0378; Q0163

== ENCOUNTER 2022-02-01 15:24 | Emergency (ER) | payer MEDICAID ==
[~2022-02-01] VITALS: Ht 154.9 cm; Wt 53.7 kg
[~2022-02-01 15:24] MED LIST changes: +HYDR-2761 PO
[2022-02-01] MEDS ORDERED: ACETAMINOPHEN 500 MG TABLET PO ONE (16:45)
[2022-02-01] MEDS ORDERED: ONDANSETRON ODT 4 MG TAB.RAPDIS. PO ONE (16:45)
--- NOTE | 2022-02-01 16:46 | PHYS DOC ---
Past Medical History Past Medical History: No Pertinent History Past Surgical History: No Surgical History Smoking Status: Never Smoker Alcohol Use: None Drug Use: None General Adult EDM: Chief Complaint: HEADACHE HPI: HPI: Patient is a 21 year old female who presents with body aches, headache, nausea and vomiting x1 since yesterday. She last took ibuprofen yesterday. She vomited vomited 1 time she states. Patient denies chest pain, cough, abdominal pain, urinary symptoms, back pain, vaginal discharge, shortness of breath, vision change, numbness tingling, focal weakness, throat pain, nasal congestion. She does have a history of smoking. Review of Systems: Review of Systems: Constitutional: +fever or +chills. [] Eyes: Denies change in visual acuity. [] HENT: Denies nasal congestion or sore throat. [] Respiratory: Denies cough or shortness of breath. [] Cardiovascular: Denies chest pain or edema. [] GI: Denies abdominal pain, nausea, vomiting, bloody stools or diarrhea. [] : Denies dysuria. [] Musculoskeletal: Denies back pain or joint pain. + Generalized body aches [] Integument: Denies rash. [] Neurologic: + headache, denies focal weakness or sensory changes. [] Endocrine: Denies polyuria or polydipsia. [] Lymphatic: Denies swollen glands. [] Psychiatric: Denies depression or anxiety. [] Heart Score: C/O Chest Pain: No Allergies: Allergies: Allergies Coded Allergies Type Severity Reaction Last Updated Verified No Known Drug Allergies 02/09/14 No Physical Exam: PE: Constitutional: Well developed, well nourished, no acute distress, non-toxic appearance. [] HENT: Normocephalic, atraumatic, bilateral external ears normal, oropharynx moist, no oral exudates, nose normal. [] Eyes: PERRLA, EOMI, conjunctiva normal, no discharge. [] Neck: Normal range of motion, no tenderness, supple, no stridor. [] Cardiovascular:Heart rate regular rhythm, no murmur [] Lungs & Thorax: Bilateral breath sounds clear to auscultation [] Abdomen: Bowel sounds normal, soft, no tenderness, no masses, no pulsatile masses. [] Skin: Warm, dry, no erythema, no rash. [] Back: No tenderness, no CVA tenderness. [] Extremities: No tenderness, no cyanosis, no clubbing, ROM intact, no edema. [] Neurologic: Alert and oriented X 3, normal motor function, normal sensory function, no focal deficits noted. [] Psychologic: Affect normal, judgement normal, mood normal. [] Normal physical exam EKG: EKG: [] Radiology/Procedures: Radiology/Procedures: [] Course & Med Decision Making: Course & Med Decision Making Pertinent Labs and Imaging studies reviewed. (See chart for details) COVID-19 CRITERIA: The patient was evaluated during the global COVID-19 pandemic, and that diagnosis was suspected/considered upon their initial presentation. Their evaluation, treatment and testing was consistent with current guidelines for patients who present with complaints or symptoms that may be related to COVID-19. See HPI. Alert and oriented x4. Ambulatory steady gait. Speaks in full clear sentences. Lungs are clear to all lobes. No rashes. Skin pink warm and dry. No CVA tenderness. Abdomen soft and nontender. Slightly febrile at 99.4. Urinalysis shows no infection. Blood work is unremarkable. Rapid influenza and Covid are negative. 1900: Awaiting acute abdominal series. Patient is wanting to leave AMA due to wanting to go get food. Patient is feeling better. She did get 1 L of normal saline and Compazine. Patient is told that her radiology results are not back yet I cannot properly diagnose her with any emergent diagnosis. Patient is educated that if she leaves she could have risk of or disability if there is something emergent. Patient states understanding and left AMA. [] Asaf Disclaimer: Asaf Disclaimer: This electronic medical record was generated, in whole or in part, using a voice recognition dictation system. COVID-19 Patient Risks: Age 65 or older: No Sign of co-morbidity: Yes Exp to person + for COVID: No Exp to PUI: No Travel from affected area: No Lower respiratory symptoms: No Fever: Yes Other: Yes (nausea, vomiting, headache) PPE Use: Full PPE with N95 mask or PAPR: Yes Departure Departure Impression: Primary Impression: Nausea Additional Impressions: Vomiting Qualified Codes: R11.10 - Vomiting, unspecified Headache Qualified Codes: R51.9 - Headache, unspecified Chills Disposition: LEFT AGAINST MEDICAL ADVICE Condition: STABLE Referrals: NO PCP (PCP) MADYSON BRASWELL APRN Feb 01, 2022 16:45
[2022-02-01] MEDS ORDERED: IBUPROFEN 200 MG TABLET. PO ONE (17:00)
[2022-02-01 17:01] LABS: BILIRUBIN,URINE NEGATIVE (NEG); CLARITY,URINE CLEAR; COLOR,URINE YELLOW; NITRITE,URINE NEGATIVE (NEG); PROTEIN,URINE NEGATIVE (NEG-TRACE); UROBILINOGEN,URINE 0.2 mg/dL (0.2 mg/dL)
[2022-02-01 17:10] LABS: BACTERIA,URINE 0 /HPF (0-FEW); WBC,URINE 0 /HPF (0-4)
[2022-02-01 17:22] LABS: INFLUENZA A PATIENT NEGATIVE (NEGATIVE); INFLUENZA B PATIENT NEGATIVE (NEGATIVE)
[2022-02-01 17:27] VITALS: BP 127/73
[2022-02-01] MEDS ORDERED: IV NORMAL SALINE 1000ML BAG 1,000 ML IV ONE (17:30)
[2022-02-01 18:00] LABS: BARBITURATES NEG (NEG); BENZODIAZEPINES NEG (NEG); CANNABINOIDS POS (NEG); COCAINE NEG (NEG); METHADONE NEG (NEG); OPIATES NEG (NEG); PHENCYCLIDINE NEG (NEG)
[2022-02-01 18:07] LABS: BASO % 1 % (0-3); EOS % 0 % (0-3); HEMATOCRIT 29.5 % (36.0-47.0); HEMOGLOBIN 10.1 g/dL (12.0-15.5); LYMPH # 0.4 x10^3/uL (1.0-4.8); LYMPH % 5 % (24-48); MEAN CORPUSCULAR HEMOGLOBIN 24 pg (25-35); MEAN CORPUSCULAR HGB CONC 34 g/dL (31-37); MEAN CORPUSCULAR VOLUME 69 fL (79-100); MONO # 0.6 x10^3/uL (0.0-1.1); MONO % 9 % (0-9); NEUT # 5.6 x10^3/uL (1.8-7.7); NEUT % 85 % (31-73); PLATELET COUNT 272 x10^3/uL (140-400); RED CELL DISTRIBUTION WIDTH 16.4 % (11.5-14.5); WHITE BLOOD COUNT 6.6 x10^3/uL (4.0-11.0)
[2022-02-01 18:07] LABS: AMPHETAMINE/METHAMPHETAMINE NEG (NEG)
[2022-02-01 18:16] LABS: CALCIUM 8.3 mg/dL (8.5-10.1); CREATININE 0.6 mg/dL (0.6-1.0); GFR 149.9; POTASSIUM 3.3 mmol/L (3.5-5.1)
[2022-02-01 18:23] LABS: ALBUMIN 3.4 g/dL (3.4-5.0); TOTAL BILIRUBIN 0.2 mg/dL (0.2-1.0); TOTAL PROTEIN 6.9 g/dL (6.4-8.2)
[2022-02-01 18:59] LABS: PLT ESTIMATE ADEQUATE (ADEQUATE)
[2022-02-01 19:00] LABS: ANISOCYTOSIS SLIGHT; HYPOCHROMIA MOD; MICROCYTOSIS MOD; POIKILOCYTOSIS SLIGHT; TARGET CELLS PRESENT
--- NOTE | 2022-02-01 20:10 | RAD ---
Exam Date: 02/01/2022 6:51 PM XR ABDOMEN COMP ACUTE Indication: Reason: fever, vomiting, diarrhea / Spl. Instructions: / History: . FINDINGS/ IMPRESSION: CHEST: The cardiac silhouette, pulmonary vasculature and lung [place] are within normal limits. The osseous structures are intact. ABDOMEN AND PELVIS: There is a non-dilated, non-obstructed bowel gas pattern. Air and fecal matter are seen within the c olon. The visualized osseous structures are intact. Electronically signed by: Valente Polanco MD (02/01/2022 8:08 PM) [id number]
== END 2022-02-01 19:22 | disposition left against medical advice (07) ==
LOC: ER 15:24
DX: R11.2 Nausea with vomiting, unspecified (principal); R51.9 Headache, unspecified; Z20.822 Contact with and (suspected) exposure to COVID-19
CPT/HCPCS: 36415; 74022; 80053; 80307; 81001; 81025; 83690; 85025; 87428; 96360; 99284; J7030